=== PATIENT | male | born 1975 | race Caucasian/White ===

== ENCOUNTER → 2022-09-17 14:47 | Outpatient (BNVA) | payer MEDICARE, MEDICAID, SELFPAY | PROVIDERS: PCP Physician Assistant; Visit Provider Physician Assistant | DX: M54.40 Lumbago with sciatica, unspecified side (principal) | CPT/HCPCS: 99212 ==

== ENCOUNTER → 2022-11-08 13:01 | Outpatient (BNV) | payer MEDICAID, SELFPAY | PROVIDERS: Admitting Provider Neurological Surgery; PCP Physician Assistant; Visit Provider Internal Medicine Cardiovascular Disease | DX: R00.0 Tachycardia, unspecified (principal); R94.31 Abnormal electrocardiogram [ECG] [EKG] | CPT/HCPCS: 93010 ==

== ENCOUNTER → 2022-11-22 10:40 | Outpatient (BNV) | payer MEDICAID, SELFPAY | PROVIDERS: Admitting Provider Neurological Surgery; PCP Physician Assistant; Visit Provider Surgery | DX: M54.40 Lumbago with sciatica, unspecified side (principal); Z48.89 Encounter for other specified surgical aftercare | CPT/HCPCS: 20930; 22558; 22612; 22840; 22853; 99024 ==

== ENCOUNTER 2022-11-22 14:12 | Inpatient (IN) | payer MEDICAID, SELFPAY ==
--- NOTE | 2022-11-08 | ECG_ITS ---
Test Reason : PREOP Blood Pressure : / mmHG Vent. Rate : 108 BPM Atrial Rate : 108 BPM P-R Int : 186 ms QRS Dur : 072 ms QT Int : 344 ms P-R-T Axes : 066 015 043 degrees QTc Int : 460 ms Sinus tachycardia Inferior infarct , age undetermined Abnormal ECG No previous ECGs available Referred By: Melanie Peralta Electronically Signed By:JACY LICONA MD
[2022-11-08 11:57] VITALS: BP 131/85; PULSE 121; RESP 16; O2SAT 97; BMI 39.1
--- NOTE | 2022-11-08 12:37 | HO.ANESPROP2 ---
HPI - Anesthesia Eval Consult details Narrative: 47yo M for L5-S1 Ant Lumbar Interbody Fusion No recent illness No CP/SOB with stairs at home/10 minute walk MARY with CPAP nightly. Encouraged compliance. Asthma stable. Albuterol ~ q3mo Recently started ozempic for DM and weightloss. [facility] Active Problems Active Problems: All Active Problems (Updated 11/08/22 @ 12:22 by Tonya Couch, RN) Back pain of lumbar region with sciatica (Acute) Past Medical History Medical History (Updated 11/08/22 @ 12:22 by Tonya Couch, JULIO) Asthma Diabetes Elevated cholesterol HTN (hypertension) MARY on CPAP Seasonal allergies Family History Family history of problems with anesthesia: No Surgical History Surgical History (Updated 11/08/22 @ 12:43 by Tonya Couch RN) History of eyelid surgery History of Problems with Anesthesia: No Social History Social History Are you a primary menagerie caretaker to a significant other at home: No Do you presently have visiting nurse or other home services: No Patient Tobacco Use Status: Never used Tobacco Use of substances other than those prescribed or required for medical reasons: No Have you been hit, kicked, punched, or otherwise hurt by someone within the past year? If so, by whom?: No Are you DNR?: No Advance Directives: No Advance Directives Information Provided: Yes Advance Directives on File: No Recently lost weight without trying: No Nutrition Risks: No Nutritional Risk Poor oral hygiene: No Meds Allergies Allergy/AdvReac Type Severity Reaction Status Date / Time cyclobenzaprine Allergy Severe Hallucinati Verified 11/08/22 12:26 [From Flexeril] ons oxycodone Allergy Severe facial Verified 11/08/22 12:27 itching lactose Allergy Intermediate Gastrointestinal Verified 11/08/22 12:28 Upset Home Medications Medication Instructions Recorded Confirmed Last Taken Type atorvastatin 80 mg tablet 80 mg PO DAILY 11/05/22 11/05/22 Unknown History fluticasone 500 mcg-salmeterol 50 1 ea inhalation BID 11/05/22 11/08/22 Unknown History mcg/dose blistr powdr for inhalation (Advair Diskus) fluticasone propionate 50 2 spray intranasal DAILY 11/05/22 11/05/22 Unknown History mcg/actuation nasal spray,suspension gabapentin 600 mg tablet 1,200 mg PO BID 11/05/22 11/08/22 Unknown History glipizide 2.5 mg tablet, extended 2.5 mg PO DAILY 11/05/22 11/05/22 Unknown History release 24 hr lisinopril 20 1 tab PO DAILY 11/05/22 11/05/22 Unknown History mg-hydrochlorothiazide 12.5 mg tablet metformin 1,000 mg tablet 1,000 mg PO BID 11/05/22 11/05/22 Unknown History albuterol sulfate 90 mcg/actuation 2 puff inhalation Q4-6H PRN 11/08/22 11/08/22 Unknown History aerosol inhaler Shortness Of Breath Or Wheezing fexofenadine 180 mg tablet 180 mg PO BID 11/08/22 11/08/22 Unknown History omega 4-fxp-bjq-fish oil 1,200 mg 2 cap PO BID 11/08/22 11/08/22 Unknown History (144 mg-216 mg) capsule (Fish Oil) semaglutide 0.25 mg or 0.5 mg (2 0.25 mg subcut QWEEK 11/08/22 11/08/22 Unknown History mg/3 mL) subcutaneous pen injector Exam Exam Date and Time: November 08, 2022 1237 Height,Weight and Vital Signs: Height 6 ft 1 in Weight 134.5 kg Last Vital Signs Pulse 121 H 11/08/22 11:57 Resp 16 11/08/22 11:57 BP 131/85 11/08/22 11:57 Pulse Ox 97 11/08/22 11:57 O2 Del Method Room Air 11/08/22 11:57 Pertinent Lab Results Pertinent Lab Results: Lab Results 11/08/22 11/08/22 11/08/22 Range/Units 13:02 13:02 13:02 WBC 8.4 (4.8-10.8) X10*3/uL RBC 4.96 (4.60-5.80) X10*6/uL Hgb 14.5 (14.0-18.0) g/dl Hct 45.0 (42.0-52.0) % MCV 90.7 (80.0-98.0) fL MCH 29.2 (27.0-33.0) pg MCHC 32.2 (31.0-36.0) g/dl RDW 14.2 (11.0-16.0) % Plt Count 292 (160-400) X10*3/uL MPV 10.5 (9.4-12.4) fL Absolute Nucleated RBC 0.000 (0.0-0.012) X10*3/uL Nucleated RBC % (auto) 0.0 (0.0-0.2) /100WBC Sodium 137 (135-145) mmol/L Potassium 4.4 (3.3-5.1) mmol/L Chloride 100 (96-108) mmol/L Carbon Dioxide 24 (22-29) mmol/L Anion Gap 17 (12-20) BUN 25 H (9-16) mg/dL Creatinine 1.10 (0.5-1.4) mg/dL Estim Creat Clear Calc 122.0 Estimated GFR > 60 Random Glucose 184 H (60-115) mg/dL Estimat Average Glucose 212 mg/dL Hemoglobin A1c % 9.0 % Calcium 10.3 H (8.4-10.2) mg/dL Narrative Narrative: EKG 10/2022 Vent. Rate : 108 BPM ? ? Atrial Rate : 108 BPM ?? P-R Int : 186 ms? QRS Dur : 072 ms ? ? QT Int : 344 ms ? ? ? P-R-T Axes : 066 015 043 degrees ?? QTc Int : 460 ms ? Sinus tachycardia Inferior infarct , age undetermined Abnormal ECG No previous ECGs available Airway Mallampati Class: III (small mouth) Neck ROM: Full Loose/Missing/Broken Teeth: No (capped molar x 1) Heart: tachy, rr Lungs: ctab Assessment and Plan Assessment Anesthesia Assessment: Anesthesia Plan Discussed and PAT Visit Final Anesthetic Review Family History of Problems with Anesthesia: No History of Problems with Anesthesia: No
[2022-11-08 13:31] LABS: Hemoglobin 14.5 g/dl (14.0-18.0); Mean Corpuscular HGB Conc 32.2 g/dl (31.0-36.0); Mean Corpuscular Hemoglobin 29.2 pg (27.0-33.0); Mean Corpuscular Volume 90.7 fL (80.0-98.0); Mean Platelet Volume 10.5 fL (9.4-12.4); Platelet Count 292 X10*3/uL (160-400); Red Blood Count 4.96 X10*6/uL (4.60-5.80); Red Cell Distribution Width 14.2 % (11.0-16.0); White Blood Count 8.4 X10*3/uL (4.8-10.8)
[2022-11-08 13:39] LABS: Anion Gap 17 (12-20); Blood Urea Nitrogen 25 mg/dL (9-16); Calcium 10.3 mg/dL (8.4-10.2); Carbon Dioxide 24 mmol/L (22-29); Chloride 100 mmol/L (96-108); Estimated Glomerular Filt Rate > 60; Glucose Random 184 mg/dL (60-115); Potassium 4.4 mmol/L (3.3-5.1); Sodium 137 mmol/L (135-145)
[2022-11-08 13:47] LABS: Estimated Average Glucose 212 mg/dL
[2022-11-22] VITALS (12 sets, daily range): BP systolic 109–141; BP diastolic 68–97; PULSE 92–104; RESP 16–21; TEMP 35.6–37.3; O2SAT 93–99
--- NOTE | ~2022-11-22 | FL_ITS ---
EXAMINATION: XR FLUOROSCOPY WITH IMAGES CLINICAL INFORMATION: L5-S1 anterior lumbar interbody fusion. COMPARISON: None available. TECHNIQUE: Fluoroscopy Supervised By: Dr. Andry Bradford. Fluoroscopy Time: 1.3 minutes. Cumulative Dose: 118.2 mGy. DAP: 2.382 Gycm2. Images: 8. FINDINGS: Fluoroscopic guidance provided for anterior interbody fusion with prosthetic disc replacement at L5-S1 and posterior fusion hardware with rods and bilateral pedicle screws. FL/FL guidance in OR IMPRESSION: Fluoroscopy guidance for surgery at L5-S1.
--- NOTE | 2022-11-22 07:14 | P.HPSUR_ITS ---
Pre-Procedural Eval Section A Date of Service: 11/22/22 The patient is an INPATIENT: No The History & Physical has been completed within 30 days and I have reviewed it.: No Section B Chief Complaint: Lumbago with sciatica, unspecified side Details of Present Illness: back pain , lumbar radiculopathy Relevant Family History (Specify if Yes): No Relevant Social History: None Present Medications: see Short Stay Collaborative assessment Medical History: Significant History (HTN, depression, sleep apnea) History of Previous Operations: No relevant previous surgery Allergies: Allergies Allergy/AdvReac Type Severity Reaction Status Date / Time cyclobenzaprine Allergy Severe Hallucinati Verified 11/18/22 14:43 [From Flexeril] ons oxycodone Allergy Severe facial Verified 11/18/22 14:43 itching lactose Allergy Intermediate Gastrointestinal Verified 11/18/22 14:43 Upset Review of Systems Sugical H&P ROS: Negative: Constitution, Cardiovascular, Respiratory, Neurolog ical, Psychiatric, Hem-Onc, Allergic/Immunologic, Gastrointestinal, Genitourinary, Musculoskeletal, Integumentary, Endocrine and Eyes/Ears/Nose/Throat Exam Surgical H&P Exam: Not Evaluated: HEENT, Not Evaluated: Heart, Not Evaluated: Lungs, Not Evaluated: Extremities, Not Evaluated: Abdomen, Not Evaluated: Skin and Not Evaluated: Neurological Plan Diagnosis/Plan: Unchanged (Oblique lumbar interbody fusion L5-S1) I have reviewed the history and physical and performed a pertinent physical examination on my patient. No changes have occurred unless specified. Time Spent With Patient Time: Total time managing care of this patient today __10__ minutes.
[2022-11-22] MEDS: methocarbamoL 750 MG TABLET PO (09:54)
[2022-11-22] MEDS: Gabapentin 300 MG CAPSULE PO (09:55)
[2022-11-22] MEDS: Lactated Ringers 1,000 ML 100 ML IVCONT (10:00)
--- NOTE | 2022-11-22 10:04 | HO.ANESPROP2 ---
[facility], [facility] Active Problems Active Problems: All Active Problems (Updated 11/18/22 @ 14:43 by Shabnam Hansen) Back pain of lumbar region with sciatica (Acute) Past Medical History Medical History (Updated 11/18/22 @ 14:43 by Shabnam Hansen) Asthma Diabetes Elevated cholesterol HTN (hypertension) MARY on CPAP Seasonal allergies Family History Family history of problems with anesthesia: No Surgical History Surgical History (Updated 11/18/22 @ 14:43 by Shabnam Hansen) History of eyelid surgery History of Problems with Anesthesia: No Meds Allergies Allergy/AdvReac Type Severity Reaction Status Date / Time cyclobenzaprine Allergy Severe Hallucinati Verified 11/22/22 09:31 [From Flexeril] ons oxycodone Allergy Severe facial Verified 11/22/22 09:31 itching lactose Allergy Intermediate Gastrointestinal Verified 11/22/22 09:31 Upset Active Medications: Current Medications Albuterol Sulfate (Albuterol Sulfate (0.083%) 2.5 Mg/3 Ml Vial.Neb) 2.5 mg INHALE ONCE PRN PRN Reason: Shortness of Breath/Wheezing Lactated Ringer's (Lr) 1,000 mls @ 100 mls/hr IVCONT .Q10H DANIELLE Last Admin: 11/22/22 10:00 Dose: 100 mls/hr Home Medications Medication Instructions Recorded Confirmed Last Taken Type atorvastatin 80 mg tablet 80 mg PO DAILY 11/05/22 11/05/22 11/21/22 History fluticasone 500 mcg-salmeterol 50 1 ea inhalation BID 11/05/22 11/08/22 11/21/22 History mcg/dose blistr powdr for inhalation (Advair Diskus) fluticasone propionate 50 2 spray intranasal DAILY 11/05/22 11/05/22 11/21/22 History mcg/actuation nasal spray,suspension gabapentin 600 mg tablet 1,200 mg PO BID 11/05/22 11/08/22 11/21/22 History glipizide 2.5 mg tablet, extended 2.5 mg PO DAILY 11/05/22 11/05/22 11/21/22 History release 24 hr lisinopril 20 1 tab PO DAILY 11/05/22 11/05/22 11/21/22 History mg-hydrochlorothiazide 12.5 mg tablet metformin 1,000 mg tablet 1,000 mg PO BID 11/05/22 11/05/22 11/21/22 History albuterol sulfate 90 mcg/actuation 2 puff inhalation Q4-6H PRN 11/08/22 11/08/22 Unknown History aerosol inhaler Shortness Of Breath Or Wheezing fexofenadine 180 mg tablet 180 mg PO BID 11/08/22 11/08/22 Unknown History omega 1-uiq-vks-fish oil 1,200 mg 2 cap PO BID 11/08/22 11/08/22 Unknown History (144 mg-216 mg) capsule (Fish Oil) semaglutide 0.25 mg or 0.5 mg (2 0.25 mg subcut QWEEK 11/08/22 11/08/22 Unknown History mg/3 mL) subcutaneous pen injector Exam Exam Date and Time: November 22, 2022 1004 Height,Weight and Vital Signs: Height 6 ft 1 in Weight 134.5 kg Last Vital Signs Temp 98.5 F 11/22/22 09:36 Pulse 104 H 11/22/22 09:36 Resp 16 11/22/22 09:36 BP 125/85 11/22/22 09:36 Pulse Ox 96 11/22/22 09:36 O2 Del Method Room Air 11/22/22 09:36 Pertinent Lab Results Pertinent Lab Results: Laboratory Tests 11/08/22 11/08/22 11/08/22 13:02 13:02 13:02 WBC 8.4 RBC 4.96 Hgb 14.5 Hct 45.0 MCV 90.7 MCH 29.2 MCHC 32.2 RDW 14.2 Plt Count 292 MPV 10.5 Absolute Nucleated RBC 0.000 Nucleated RBC % (auto) 0.0 Sodium 137 Potassium 4.4 Chloride 100 Carbon Dioxide 24 Anion Gap 17 BUN 25 H Creatinine 1.10 Estim Creat Clear Calc 122.0 Estimated GFR > 60 Random Glucose 184 H Estimat Average Glucose 212 Hemoglobin A1c % 9.0 Calcium 10.3 H Airway Mallampati Class: III TM Dist: >3cm Neck ROM: Full Assessment and Plan Assessment Anesthesia Assessment: Anesthesia Plan Discussed and Chart Reviewed Final Anesthetic Review Family History of Problems with Anesthesia: No History of Problems with Anesthesia: No NPO: Yes ASA Class: III Final Preanesthetic Review: No Changes in Pt Med Stat, Meds/Allgs Chart Reviewed, Consent Obtained/Reviewed and Anes Risks/Benef Reviewed Patient Risk: Intermediate Procedure Risk: Intermediate Anesthetic Plan Anesthetic Plan: GA Disposition: Standard PACU
[2022-11-22 10:16] LABS: Glucose, Whole Blood 225 mg/dL (60-115)
[2022-11-22] MEDS: ceFAZolin Sodium/Dextrose,Iso 2 GM/50 ML PIGGYBACK IV (11:05)
--- NOTE | 2022-11-22 12:59 | P.OP_ITS ---
Operative Note Operative Note Date of Service: 11/22/22 Narrative: The patient was brought to the operating room, positioned on the table supine and general anesthesia was administered. Patient was then turned to the right decubitus position with left side up. C-arm image was obtained in AP and lateral planes and anterior border of the spine and disk space projections were marked on the skin.The abdomen was clipped and then prepped and draped in the usual sterile fashion. After timeout was done, incision was made from 2 cm medial and inferior to the Anterior Superior iliac spine in oblique direction 5 cm long. It was brought through subcutaneous tissue and the external oblique aponeurosis in line with the skin incision and transverse and internal abdominal muscles were split along the fibers. The pre-peritoneal plane was entered, peritoneum was bluntly dissected off and iliac artery pulse was felt. Self- retaining retractor with two deep blades was inserted and peritoneum protected with moist gauzes. Left internal iliac vein was identified and dissection was carried along the medial surface of the iliac vein up to the bifurcation. The middle sacral vessels were transected and L5-S1 disc space was bluntly and sharply dissected using bipolar cautery staying directly on the surface of the spine. The midline of the disk space was marked with C-arm image guide. Dr. Bradford then proceeded with the corpectomy and fusion, which will be dictated separately by him. After this was done, hemostasis was checked and was excellent. Left ureter was examined prior to closure and was intact. There was good left external iliac artery pulse. Diluted 0.5% Marcaine and Lidocaine was injected in the fascia and subcutaneous tissue. The incision was irrigated and closed by layers using a 2-0 Vicryl for transverse fascia, 0 PDS for the external oblique, 3-0 Vicryl for subcutaneous tissue and 4-0 Monocryl for skin. Exo-fin glue was then applied.
--- NOTE | 2022-11-22 14:18 | W.PM.OPN ---
Operative Note Operative Note Date of Service: 11/22/22 Narrative: Preoperative Diagnosis: 1.) Lumbar degenerative disc disease with back pain Procedure: L5-S1 discectomy, arthrodesis and implantation cage through an anterolateral, retroperitoneal approach; posterolateral instrumented fusion L5-S1 with pedicle screw fixation; allograft Indication for Surgery Lumbar degenerative disc disease Consent Informed Consent was obtained for this operation. I have explained the nature, purpose and benefits of the operation. I have discussed the risks and benefit of the operation including possible complications or adverse events with patient/family. Alternative(s) were discussed with the patient with their relative benefits and risks as well as the consequences of not accepting the operation were included in obtaining consent. Surgeon: GLENIS HOLLOWAY MD, PHD Procedure Assisted By: SANDRO ROGERS MD Description of Procedure this 47-year-old male is suffering from intractable low back pain with the MRI showing lumbar degenerative disc disease L5-S1. The patient was offered a minimally invasive lumbar fusion through an anterolateral, retroperitoneal approach followed by a posterior instrumented fusion L5-S1. The procedure complications were explained. The patient was consented. The patient was brought to the operating room and endotracheally intubated. The patient was turned in the lateral position with the left side up. Prep and drape was done followed by timeout. Dr. Rogers, co-surgeon, provided the access to the L5-S1 disc space through an anterolateral, retroperitoneal approach. He will dictate the approach in a separate operative note. When the L5-S1 disc space was exposed I took over the procedure. An annulotomy was done followed by a partial discectomy. Sequential trial implants were inserted and advanced towards the posterior wall of the disc space. I completed the discectomy and prepare the endplates. Then a [id number] mm and 12 degree lordosis 4 web cage filled with allograft was inserted into the disc space. The retractor was removed and hemostasis was done by Dr. Vincent who closed the incision. This marked first part of the procedure. Accordingly the patient was turned prone on the True spine table and 2 C arms were installed for fluoroscopy. Prep and drape was done followed by a second timeout. 2 paramedian incisions were made lateral from the L5-S1 pedicles. The muscle fascia was opened and the musculature was split bluntly to expose the posterolateral gutter. The following steps were taken for pedicle screw placement: The pediguard tap was used to create a transpedicular trajectory into the vertebral body. A K wire was advanced. A specially designed instrument was advanced over the K wire to decorticate the posterolateral gutter. Pedicle screw was advanced after which the K wire was removed. Following the steps pedicle screws were placed in the bilateral L5 and S1 pedicles. Total of 4 screws were placed with the following measurements: 6.5x 45 mm. A 40 mm gianfranco was tunneled on the right and a 45 mm gianfranco on the left and locked down with locking caps. The extension towers were removed. The posterolateral fusion was completed by laying down allograft in the posterolateral gutter. Hemostasis was done. The paramedian incisions were closed with an 0 Vicryl to fascia and 3-0 Vicryl to subdermal layer. Steri-Strips were used to approximate the incision. An OpSite with Tegaderm was used to cover the incisions. All sponge and needle counts were correct. Patient was extubated and transported in stable condition to recovery room. Anesthesia: General Estimated Blood Loss (ml): 150 Duration of Surgery: 2 hr 15 Complications: None Postoperative Plan: Admit to inpatient
--- OUTSIDE RECORDS SUMMARY | 2022-11-22 14:25 | XMS_ITS | Continuity of Care Document ---
Author Name Unknown Organization [facility] Address [address] [place] [id number]- Care Team Providers Care Brake Mechanic Name Role Phone Kin FAULKNER, Yoana Nance Primary Care Physician [place] [facility] [id number] Date(s): 06/24/20 - 07/24/20 [facility] [address] [address] Attending Physician: Isaac Smith Admitting Physician: AdmIsaac alexandre Referring Physician: AdmtrIsaac Allergies, Adverse Reactions, Alerts Substance Reaction Severity Status cyclobenzaprine Active Immunizations Given and Recorded Vaccine Date Status Refusal Reason influenza virus vaccine, inactivated 01/01/09 Give n influenza virus vaccine, inactivated 02/12/08 Give n Tet/Diphth/Acel, Pertussis (oldterm) 02/12/08 Give n tetanus-diphtheria toxoids (Td) 01/19/07 Given Medications Advair Diskus 500 mcg-50 mcg inhalation powder 1 puffs, Inhalation, 2 times a day, # 60 each, 0 Refills, Maintenance Start Date: 10/15/09 Stop Date: 01/13/10 Status: Ordered Azithromycin 5 Day Dose Pack 250 mg oral tablet See Instructions, as directed on package labeling, # 1 each, 0 Refills Start Date: 04/24/09 Stop Date: 05/01/09 Status: Ordered fexofenadine 180 mg oral tablet 1 tablet = 180 mg, By Mouth, Daily, # 90 tablet, 0 Refills, Maintenance Start Date: 10/15/09 Stop Date: 01/13/10 Status: Ordered lorazepam 0.5 mg oral tablet 1 tablet = 0.5 mg, By Mouth, 3 times a day, PRN Anxiety, # 90 tablet, 1 Refills Start Date: 03/05/09 Stop Date: 03/12/09 Status: Ordered Percocet-5/325 325 mg-5 mg oral tablet 1 tablet, By Mouth, Every 6 hours, PRN Pain, # 120 tablet, 0 Refills, Maintenance, Tablet Start Date: 09/29/09 Status: Ordered ProAir HFA 90 mcg/inh inhalation aerosol with adapter 2 puffs, Inhalation, 4 times a day, # 3 each, 0 Refills, Maintenance Start Date: 10/15/09 Stop Date: 01/13/10 Status: Ordered Soma 350 mg oral tablet 1 tablet = 350 mg, By Mouth, 3 times a day, # 42 tablet, 0 Refills, Tablet Start Date: 04/24/09 Stop Date: 05/08/09 Status: Ordered Zocor 20 mg oral tablet 1 tablet, By Mouth, Daily at bedtime, # 90 tablet, 3 Refills, Maintenance Start Date: 02/06/10 Stop Date: 02/01/11 Status: Ordered Zoloft 100 mg oral tablet 1, tablet, By Mouth, Daily, # 90 tablet, 1 Refills Start Date: 10/22/08 Stop Date: 04/20/09 Status: Ordered Problem List Condition Effective Dates Status Health Status Inform ant Asthma(Confirmed) Active Back pain(Confirmed) Active Depression(Confirmed) Active
--- OUTSIDE RECORDS SUMMARY | 2022-11-22 14:25 | XMS_ITS | Continuity of Care Document ---
Author Name Unknown Organization [facility] Address [address] [place] [address]- Care Team Providers Care Wage Conciliator Name Role Phone Kin FAULKNER, Yoana Nance Primary Care Physician [place] [facility] [place]13[place] - 03/15/[address] [address] Attending Physician: Not on Staff, Attending MD Allergies, Adverse Reactions, Alerts Substance Reaction Severity [...]
--- OUTSIDE RECORDS SUMMARY | 2022-11-22 14:25 | XMS_ITS | Continuity of Care Document ---
Author Name Unknown Organization [facility] Address [address] [place] [address]- Care Team Providers Care Hot End Operator Name Role Phone Ori Castle Primary Care Physician [phone] Encounter [facility] [place] Date(s): 01/27/22 - 02/26/[address] [address] Attending Physician: Isaac Smith Admitting Physician: Isaac Smith Referring Physician: AdmtrIsaac Allergies, Adverse Reactions, Alerts [...] Date: 04/20/09 Status: Ordered Problem List Condition Confirmation Course Effective Dates Status Health St [facility] Informant Asthma Confirmed Active Back pain Confirmed Active Depression Confirmed Active Patient Care team information Care Team Personnel Name: Ori Castle Position: [facility] Outreach Member Role: PCP Address: Address: [address] [place] [address] Care Team Related Persons Name: NONE, NONE
--- OUTSIDE RECORDS SUMMARY | 2022-11-22 14:25 | XMS_ITS | Continuity of Care Document ---
Author Name Unknown Organization [facility] Address [address] [place] [id number]- Care Team Providers Care Senior Media Director Name Role Phone Ori Castle Primary Care Physician [place] [facility] [place] 02/03/[address] [address]- Attending Physician: Selene Espino MD Admitting Physician: Selene Espino MD Referring Physician: Ori Castle Allergies, Adverse Reactions, Alerts Substance Reaction Severity [...] Condition Confirmation Course Effective Dates Status Health at Informant Asthma Confirmed Active Back pain Confirmed Active Depression Confirmed Active Patient Care team information Personnel Name: Ori Castle Address: Address: [address] [place] [id number]
--- OUTSIDE RECORDS SUMMARY | 2022-11-22 14:25 | XMS_ITS | Continuity of Care Document ---
Author Name Unknown Organization [facility] Address [address] [place] [address]- Care Team Providers Care Pipelines Superintendent Name Role Phone Kin FAULKNER, Yoana Nance Primary Care Physician [phone] [place] [facility] [place] 03/15/[address] [address] Attending Physician: Isaac Smith Admitting Physician: [...]
--- OUTSIDE RECORDS SUMMARY | 2022-11-22 14:25 | XMS_ITS | Continuity of Care Document ---
Author Name Unknown Organization [facility] Address [address] [place] [address]- Care Team Providers Care Trimmer Operator Name Role Phone Kin FAULKNER, Yoana Nance [facility] Physician [id number] Date[facility] - 07/24/[address] [address] Attending Physician: Jarrett Price MD Admitting Physician: Jarrett Price MD Referring Physician: Jarrett Price MD Allergies, Adverse Reactions, Alerts Substance Reaction [...]
[2022-11-22] MEDS: fentaNYL citrate/PF 100 MCG/2 ML VIAL 50 MCG IVPUSH ×2 (14:40→15:00)
[2022-11-22] MEDS: HYDROmorphone HCl 0.5 MG/0.5 ML SYRINGE IVPUSH ×2 (15:07→15:17)
--- NOTE | 2022-11-22 15:41 | PHA.MEDREC ---
Pharmacy Consult ? Medication Reconciliation Pharmacy has completed the medication reconciliation. reviewed med rec done by nursing.
[2022-11-22] MEDS: Ketorolac Tromethamine 15 MG/ML VIAL IVPUSH ×2 (15:59→21:23)
[2022-11-22] MEDS: ondansetron HCL 4 MG/2 ML VIAL IVPUSH (15:59)
[2022-11-22 17:04] LABS: Glucose, Whole Blood 262 mg/dL (60-115)
[2022-11-22] MEDS: Acetaminophen 1,000 MG/100 ML PIGGYBACK 400 MG IV (17:59)
[2022-11-22 19:02] LABS: Creatinine Clr Calc Pharmacy 123.1; Estimated Glomerular Filt Rate > 60
[2022-11-22] MEDS: ceFAZolin Sodium 3 GM in 0.9 % Sodium Chloride 100 ML IV (19:22)
[2022-11-22] MEDS: Gabapentin 600 MG TABLET 1200 MG PO (21:23)
[2022-11-22] MEDS: metFORMIN HCl 1,000 MG TABLET 1000 MG PO (21:23)
[2022-11-22] MEDS: Docusate Sodium 100 MG CAPSULE PO (21:23)
[2022-11-23] MEDS: Acetaminophen 1,000 MG/100 ML PIGGYBACK 400 MG IV (01:26)
[2022-11-23] MEDS: ceFAZolin Sodium 3 GM in 0.9 % Sodium Chloride 100 ML IV ×2 (01:26→06:31)
[2022-11-23] MEDS: Ketorolac Tromethamine 15 MG/ML VIAL IVPUSH ×2 (01:27→08:59)
[2022-11-23 03:21] VITALS: BP 129/75; PULSE 103; RESP 17; TEMP 36.2; O2SAT 96
[2022-11-23 07:47] VITALS: BP 127/71; PULSE 109; RESP 18; TEMP 36.8; O2SAT 95
--- NOTE | 2022-11-23 07:53 | HO.NEURO.PN ---
Neurosurgery Operative Note Date of Service: 11/23/22 Narrative: POD: 1 Procedure: L5-S1 ALIF with posterolateral fusion L5-S1 with pedicle screw fixation Patient reports he is up walking around is otherwise doing well. He feels his symptoms are much better than pre-operatively. He states that initially his left leg had some numbness postoperatively, which has since resolved. He still reports mild pain in his low back, with good relief with pain medication. He reports he is voiding well, tolerating diet, and is awaiting a PT evaluation. Afebrile, vital signs stable. Patient reports that his left lower extremity is weaker than his right lower extremity, but they both seem equal in strength (5/5) when tested. Back dressings C/D/I and have some staining without signs of hematoma. Left lateral incision C/D/I without serosanguineous drainage, steri-strips remain in place. Plan: Patient meets criteria to be medically discharged home, discussed with Dr. Bradford who is aware that he is doing well and meets criteria for DC.
--- NOTE | 2022-11-23 07:54 | PM.DS ---
DS: Providers Provider Date of Service: 11/23/22 Date of admission: 11/22/22 14:12 Primary care physician: UZMA Gaines DS: Diagnosis Discharge Diagnosis (1) Back pain of lumbar region with sciatica: Status: Acute DS: Summary Time Spent with Patient Time attestation: Total time managing care of this patient today ____ minutes. Discharge coordination time: Less than 30 minutes Quality: Safe Use of Opioids Does Pt have an Active Cancer Diagnosis on the Problem List?: No Quality: Stroke Does the patient have a stroke diagnosis?: No Physical Exam Vital Signs: Vital Signs: Last Vital Signs Temp 98.2 F 11/23/22 07:47 Pulse 109 H 11/23/22 07:47 Resp 18 11/23/22 07:47 BP 127/71 11/23/22 07:47 Pulse Ox 95 11/23/22 07:47 O2 Del Method Room Air 11/23/22 07:47 O2 Flow Rate 2 11/22/22 19:29 BMI result Body Mass Index 39.1 DS: Data Data Completed and Pending Labs on day of discharge: Laboratory Results - last 24 hr 11/22/22 11/22/22 11/22/22 09:43 16:40 18:18 Creatinine 1.09 Estim Creat Clear Calc 123.1 Estimated GFR > 60 POC Glucose 225 H 262 H Discharge Plan Discharge Anticipated Discharge Date/Time: 11/23/22 07:55 Patient Disposition: Home, Self-Care Discharge Diagnosis: S/P L5-S1 ALIF with posterolateral fusion L5-S1 with pedicle screw fixation Referrals: Ori Dolan PA [Primary Care Provider] - 1 Week Discharge Medications: New hydromorphone 2 mg tablet 2 mg PO Q4H PRN (Reason: pain) Qty: 30 0RF Rx Instructions: S/P Lumbar spine surgery. Partial Fill upon patient request. docusate sodium [Colace] 100 mg capsule 100 mg PO BID Qty: 20 0RF Continued atorvastatin 80 mg tablet 80 mg PO DAILY gabapentin 600 mg tablet 1,200 mg PO BID lisinopril-hydrochlorothiazide 20-12.5 mg tablet 1 tab PO DAILY glipizide 2.5 mg tablet extended release 24hr 2.5 mg PO DAILY metformin 1,000 mg tablet 1,000 mg PO BID fluticasone propion-salmeterol [Advair Diskus] 500-50 mcg/dose blister with device 1 ea inhalation BID fluticasone propionate 50 mcg/actuation spray,suspension 2 spray intranasal DAILY semaglutide 0.25 mg or 0.5 mg (2 mg/3 mL) Pen Injector 0.25 mg SUBCUT QWEEK Rx Instructions: for 4 weeks albuterol sulfate 90 mcg/actuation Hfa Aerosol Inhaler 2 puff INHALATION Q4-6H PRN (Reason: Shortness Of Breath Or Wheezing) fexofenadine 180 mg Tablet 180 mg PO BID No Action omega 5-jux-mzh-fish oil [Fish Oil] 1,200 (144-216) mg Capsule 2 cap PO BID Discharge Orders: Discharge Order (Routine); Ordered 11/23/22 Ordered By: Markie Cooper Diet: Diabetic diet Activity on Discharge: As tolerated Stand Alone Forms: Patient Portal Discharge page Activity Restrictions/Additional Instructions: After your spinal surgery we ask you to observe the following restrictions/guidelines: Activity: It is normal to feel some discomfort as you increase your activity, but that will improve with time. We ask you avoid heavy lifting or acitivities that cause pain. As a general rule, 8lbs is a safe limit for lifting right after surgery. Walk as much as you feel comfortable but not to exhaustion. You will feel extra tired the first few days after surgery. Stay well hydrated. It is OK to walk up and down stairs You may return to driving when you are off narcotics (such as vicodin, oxycodone, dilaudid, etc), and you are back to normal functional capacity. If you have any concerns please check with office before driving. Return to work is specific to each patient and each surgery, so please speak with your doctor/PA at first follow up. Please bring paperwork such as FMLA at that time if you need it filled out. Medications: We will give you a short supply of narcotics after surgery (usually one weeks worth). If you need more please call the office but do not use more than prescribed. You will need to give our office 48 hours notice if you need narcotics refilled and we do not fill narcotics on weekends or evenings. If you are on a narcotic, it is a good idea to take a stool softener such as colace or senna to avoid constipation If you take blood thinner such as aspirin, Plavix, Coumadin, Effient, Eliquis etc for conditions such as Afib, DVT, Pulmonary embolus, coronary disease, stents etc please speak with your surgeon about specific details as to when you can resume these medications. You can resume NSAIDs on post op day 1 (eg: Motrin, Naproxen, etc). Follow up: Please call the office, , after surgery to arrange a 3 week follow up for wound check. Wound Care: You may remove your dressing on the first day after surgery. You may leave open to air. Please do not remove the steri strips underneath. they will fall off on their own in one week. IT IS NORMAL FOR THE WOUND TO OOZE OR BE BLOODY FOR A FEW DAYS AFTER SURGERY. IF THIS HAPPENS JUST PLACE NEW DRESSING OVER IT TO AVOID STAINING CLOTHES. You may shower on post op day # 1 We ask that you do not let the water soak the wound. If it does get wet, just towel dry lightly. Please do not scrub your incision or place any type of chemical/ointment on the wound. No tub baths, pools or jacuzzis for one month. If you have any leaking or redness from your wound, or fevers, please call office Care Plan Goals: Reurn to activity as tolerated. Health Concerns: None. Plan of Treatment: F/U in office in 2 weeks. Assessment: Stable. Needs to be seen by PT and then may discharge home.
--- NOTE | 2022-11-23 08:03 | W.MHC.F2F ---
Service Date Service Date: 11/23/22 Encounter Date of encounter: 11/23/22 Reasons for Services Signs and symptoms assessed: Low back pain, s/p lumbar spinal surgery. Symptomology as below. Reason for physical therapy: home safety and mobility, therapeutic exercises, restore joint function, gait/transfer training and ADL training Homebound: Leaving the home is medically contraindicated at this time without the asist of a device and/or another person due th the listed conditions above and below. Reason homebound: unsteady gait / fall risk, leg weakness, pain with transfers, weakness related to hospital stay and unable to drive Certification: Based on the above findings, I certify that this patient is confined to the home and needs intermittent physical therapy. The patient is under my care, and I have initiated the establishment of the plan of care. The patient will be followed by a physician who will periodically review the plan of care. Time Spent With Patient Time: Total time managing care of this patient today __10__ minutes.
[2022-11-23] MEDS: Fluticasone/Vilanterol 200/25 BLST.W.DEV 1 PUFF INHALE (08:05)
[2022-11-23 08:07] VITALS: PULSE 103; RESP 16; O2SAT 96
--- NOTE | 2022-11-23 08:46 | MHC.CM.PN ---
IMM DELIVERED LIVES ALONE WITH CAT. INDEPENDENT AT BASELINE. USES CANE NEEDED AND HAS A C-PAP FOR SLEEP. NO HCP, DECLINES AT THIS TIME +COVID VAX X3 PCP LAYNE GUSMAN. DP: PT HAS BEEN MEDICALLY CLEARED FOR DC HOME WITH [facility] FOR P.T. SERVICES (FIRST CHOICE) REFERRAL SENT. PT HAS OWN RIDE HOME.
[2022-11-23] MEDS: Atorvastatin Calcium 80 MG TABLET PO (09:01)
[2022-11-23] MEDS: Docusate Sodium 100 MG CAPSULE PO (09:01)
[2022-11-23] MEDS: lisinopriL 20 MG TABLET PO (09:02)
[2022-11-23] MEDS: glipiZIDE XL 2.5 MG TAB.ER.24 PO (09:02)
[2022-11-23] MEDS: Gabapentin 600 MG TABLET 1200 MG PO (09:02)
[2022-11-23] MEDS: Loratadine 10 MG TABLET PO (09:03)
[2022-11-23] MEDS: metFORMIN HCl 1,000 MG TABLET 1000 MG PO (09:12)
[2022-11-23] MEDS: hydroCHLOROthiazide 12.5 MG TABLET PO (09:13)
--- NOTE | 2022-11-23 09:14 | HO.POSTANES ---
Post Anesthesia Evaluation Post Anesthesia Evaluation Date of Service: 11/23/22 Vital Signs: Vital Signs Temp Pulse Resp BP Pulse Ox O2 Del Method 11/23/22 08:07 103 H 16 11/23/22 07:47 98.2 F 109 H 18 127/71 95 Room Air 11/23/22 03:21 97.2 F 103 H 17 129/75 96 Room Air Anesthesia: General Endotracheal-GETA Mental Status: Awake Pain Control: Satisfactory Nausea/Vomiting: None Hydration: Adequate Anesthesia-Related Issues: No Anes. Related Issues
[2022-11-23 10:09] VITALS: O2SAT 99
== END 2022-11-23 11:01 | disposition home health service (06) | DRG 304 ==
LOC: HO.SSSA 14:24 → HO.S3 15:01
PROVIDERS: Nurse Practitioner; Admitting Provider Neurological Surgery; PCP Physician Assistant; Visit Provider Neurological Surgery
PROC: 0SG30A0 Fusion of Lumbosacral Joint with Interbody Fusion Device, Anterior Approach, Anterior Column, Open Approach (ICD-10-PCS; principal; 2022-11-22 10:40)
DX: M51.36 Other intervertebral disc degeneration, lumbar region (principal)
CPT/HCPCS: 36415; 80048; 82565; 82947; 83036; 85027; 93005; 94640; 97161; C1713; J0131; J0690; J1170; J1885; J2250; J2371; J2405; J3010; L8699

== ENCOUNTER 2022-12-17 11:28 | Outpatient (AMB) | payer MEDICAID, SELFPAY ==
--- NOTE | 2022-12-17 11:29 | A.SPINEOV_ITS ---
Intake Intake Visit Reasons: 1st post-op Intake Note: Mr. Avendano is here today for his 1st post-op. Partition Assembler Required: No Allergies cyclobenzaprine [From Flexeril] Allergy (Severe, Verified 11/22/22 09:31) Hallucinations oxycodone Allergy (Severe, Verified 11/22/22 09:31) facial itching lactose Allergy (Intermediate, Verified 11/22/22 09:31) Gastrointestinal Upset Assessment & Plan Assessment & Plan (1) Back pain of lumbar region with sciatica: Code(s): M54.40 - Lumbago with sciatica, unspecified side Plan The patient is a 47-year-old male comes in for his 1st postoperative appointment s/p L5-S1 ALIF with posterolateral fusion L5-S1 with pedicle screw fixation completed on 11/22/2022. Postoperatively the patient still complained of some pain with radiation down his left leg, accompanied by some numbness/tingling. Today in the office he reports that he is ambulating well, with the assistance of a cane. He is still having some dull aching in his left lateral thigh reports no radiation of symptoms down his leg to his foot. He states that he feels much better than he did preoperatively, and is very satisfied with the surgery. He has several questions about postoperative care including bending/twisting to perform minor ADLs such as opening his oven to cook meals. He was informed that doing minor things such as this in order to complete his ADLs is completely fine, and he was encouraged to continue walking and remaining active. On exam the patient appears well, in NAD. His left lateral incision is clean dry and intact. His posterior back incisions are clean dry and intact. There are no signs of erythema, edema, or infection. No purulence from any of the inci arturo sites. Sensation remains grossly intact aside from some nonspecific sensation reduction in his left lateral thigh. The patient is overall doing well, and may be seen back in 6 weeks for follow-up appointment. He is informed that we will need to get lumbar spine x-rays at that time, and may discuss continued physical therapy if the patient feels that he needs it. Total amount of time spent in this visit was 20 minutes in discussion of symptoms, surgical procedure XR imaging review, and subsequent plan of care. Markie Bradford MD,PhD [facility] Coding Level of Care Code Est Pt Level 3 (64928) Diagnoses Back pain of lumbar region with sciatica M54.40
== END 2022-12-17 11:44 | disposition home or self-care (01) ==
PROVIDERS: PCP Physician Assistant; Visit Provider Physician Assistant
DX: M54.40 Lumbago with sciatica, unspecified side (principal)
CPT/HCPCS: 99213

== ENCOUNTER → 2022-12-17 11:28 | Outpatient (BNVA) | payer MEDICAID, SELFPAY | PROVIDERS: PCP Physician Assistant; Visit Provider Physician Assistant | DX: M54.40 Lumbago with sciatica, unspecified side (principal) | CPT/HCPCS: 99212 ==

== ENCOUNTER 2023-01-27 16:39 | Outpatient (REF) | payer MEDICAID, SELFPAY | END 2023-01-27 16:40 | disposition home or self-care (01) | LOC: HO.HOSX 16:39 | PROVIDERS: Visit Provider Physician Assistant | DX: Z13.89 Encounter for screening for other disorder (principal) ==

== ENCOUNTER 2023-01-28 08:33 | Outpatient (AMB) | payer MEDICAID, SELFPAY ==
--- NOTE | 2023-01-28 08:58 | A.OFFVIS_ITS ---
Intake Intake Visit Reasons: 2nd post op Intake Note: pt here for 2nd post op X rays were done Physician Primary Care Sports Medicine Required: No Allergies cyclobenzaprine [From Flexeril] Allergy (Severe, Verified 11/22/22 09:31) Hallucinations oxycodone Allergy (Severe, Verified 11/22/22 09:31) facial itching lactose Allergy (Intermediate, Verified 11/22/22 09:31) Gastrointestinal Upset PFSH Medical History (Updated 01/28/23 @ 09:24 by UZMA Gil) Asthma Seasonal allergies Elevated cholesterol HTN (hypertension) Diabetes MARY on CPAP Surgical History (Updated 01/28/23 @ 09:24 by UZMA Gil) History of eyelid surgery Social History (System 11/18/22 @ 14:43 by Shabnam Hansen) Household Members: Family Are you a primary memory care director to a significant other at home: No Do you presently have visiting nurse or other home services: No Patient Tobacco Use Status: Never used Tobacco Second Hand Smoke Exposure: No service: No Assessment & Plan Assessment & Plan (1) S/P lumbar fusion: Code(s): Z98.1 - Arthrodesis status Orders: Orders XR lumbar spine 4V min Today M54.40 - Lumbago with sciatica, unspecified side PT Evaluation and Treatment Today M54.40 - Lumbago with sciatica, unspecified side Coding Level of Care Code Global (01779) Diagnoses S/P lumbar fusion Z98.1
== END 2023-01-28 09:25 | disposition home or self-care (01) ==
PROVIDERS: PCP Physician Assistant; Visit Provider Physician Assistant
DX: Z98.1 Arthrodesis status (principal)
CPT/HCPCS: 99024

== ENCOUNTER → 2023-01-28 08:33 | Outpatient (BNVA) | payer MEDICAID, SELFPAY | PROVIDERS: PCP Physician Assistant; Visit Provider Physician Assistant | DX: M54.40 Lumbago with sciatica, unspecified side (principal) ==

== ENCOUNTER 2023-01-28 08:35 | Outpatient (REF) | payer MEDICAID, SELFPAY ==
--- NOTE | ~2023-01-28 | XR_ITS ---
EXAMINATION: XR LUMBOSACRAL SPINE WITH OBLIQUES CLINICAL INFORMATION: Lumbago with sciatica COMPARISON: Fluoroscopic guidance 11/22/2022 at L5-S1 anterior lumbar interbody fusion TECHNIQUE: AP view as well as lateral neutral, flexion and extension views of the lumbar spine. FINDINGS: Posterior fusion hardware with rods and bilateral pedicle screws and interbody disc spacer at L5-S1. Hardware appears intact. Visualization limited due to body habitus. Slight levoscoliosis of the lumbar spine. Degenerative changes in the partially imaged lower thoracic spine. Mild anterior loss of height of what is possibly T12 vertebral body, of indeterminate age. Multilevel degenerative changes in the remainder of the lumbar spine are most notable at L2-L3 with grade 1 retrolisthesis, loss of disc space height and hypertrophic change. XR/XR lumbar spine 4V min IMPRESSION: 1. Posterior fusion hardware with rods and bilateral pedicle screws and interbody disc spacer at L5-S1. Hardware appears intact. 2. Mild anterior loss of height of what is possibly T12 vertebral body, of indeterminate age. 3. Advanced degenerative changes at L2-L3 with grade 1 retrolisthesis.
== END 2023-01-28 08:36 | disposition home or self-care (01) ==
LOC: HO.HOSX 08:35
PROVIDERS: Visit Provider Physician Assistant
DX: M54.40 Lumbago with sciatica, unspecified side (principal); Z47.89 Encounter for other orthopedic aftercare; Z98.1 Arthrodesis status
CPT/HCPCS: 72110

== ENCOUNTER 2023-05-12 09:00 | Outpatient (RCR) | payer MEDICAID, SELFPAY ==
--- NOTE | 2023-02-03 11:38 | MHC.PT.EP ---
[facility] [place] Office [place] Office [place] Office [address] Trista Mcdaniel [address] [phone] F: [phone] F: [phone] F: [phone] F: [phone] Physical Therapy Plan of Care Date of Evaluation: 02/03/23 Date of Surgery: 11/22/22 Diagnosis: lumbago with sciatica, s/p lumbar fusion 11/22/22 Assessment: Patient is a 47 year old R handed male who presents with s/s consistent with low back pain, lumbago with sciatica, s/p lumbar fusion 11/22/22. He does not work and is living a fairly sedentary lifestyle due to chronic pain before surgery. Patient past medical history includes CPAP, HTN, DM, and asthma. Current impairments include pain, posture, ROM, strength, activity tolerance and functional mobility. Functional limitations include decreased ability to stand, walk, lift, bend, carry, negotiate stairs, exercise, and be active. Patient is motivated with good rehab potential. Skilled PT will address impairments and functional limitations in order to achieve goals. 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 Manual therapy to restore motion and function. Therapeutic exercise to improve strength and flexibility. Neuromuscular re-education for posture and balance. Therapeutic activities to return to functional activities of daily living. Electronically signed by: Maciej Patiño PT Please sign and return to therapist. Thank you for your referral.
== END 2023-12-27 10:56 | disposition home or self-care (01) ==
LOC: HO.PTCHIC 09:00
PROVIDERS: PCP Physician Assistant; Visit Provider Physician Assistant
DX: M54.50 Low back pain, unspecified (principal)
CPT/HCPCS: 97110; 97162

== ENCOUNTER 2024-10-03 09:44 | Outpatient (AMB) | payer MEDICAID, SELFPAY ==
--- NOTE | 2024-10-03 09:46 | MHC.OFFVIS ---
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 The patient states that he fell directly onto his left shoulder in July of 2023 when he was helping his parents. He has been going to formal physical therapy which has given him minimal relief. He has had a cortisone injection which gave him no relief but did significantly elevated his blood glucose levels. He has tried Tylenol and anti-inflammatory medicines which gave him minimal relief. Allergies cyclobenzaprine (From Flexeril) Allergy (Severe, Verified 10/03/24 09:50) Hallucinations oxycodone Allergy (Severe, Verified 10/03/24 09:50) facial itching lactose Allergy (Intermediate, Verified 10/03/24 09:50) Gastrointestinal Upset Medication List - Last Reconciled 10/03/24 by Adonis Leal MD albuterol sulfate 90 mcg/actuation 2 puffs inhalation Q4-6H PRN atorvastatin 80 mg PO DAILY diclofenac sodium 1% 4 grams topical BID empagliflozin (Jardiance) 10 mg PO QAM fenofibrate nanocrystallized 145 mg PO DAILY fexofenadine 180 mg PO BID fluticasone propion-salmeterol 500-50 mcg/dose (Advair Diskus) 1 ea inhalation BID fluticasone propionate 50 mcg/actuation 2 sprays intranasal DAILY insulin glargine (Lantus Solostar U-100 Insulin) 10 units subcut BEDTIME lisinopril-hydrochlorothiazide 20-12.5 mg 1 tab PO DAILY metformin 500 mg PO BID omega 3-bst-hxq-fish oil 1,200 (144-216) mg (Fish Oil) 2 caps PO BID PFSH Medical History Asthma Seasonal allergies Elevated cholesterol HTN (hypertension) Diabetes AMRY on CPAP Surgical History History of eyelid surgery Social History Household Members: Family Are you a primary rn progressive care to a significant other at home: No Do you presently have visiting nurse or other home services: No Patient Tobacco Use Status: Never used Tobacco Second Hand Smoke Exposure: No service: No Current occupational status: unemployed Current occupation: rt handed Physical Exam Vital Signs: BMI result Body Mass Index 39.0 Const Other: Well-nourished well-developed very friendly male awake alert and oriented x3 in no acute distress Extrem Other: Bilateral upper extremity examination shows good capillary refill, no skin lesions noted, normal sensation light touch Left shoulder examination shows decreased range of motion when compared to his right shoulder, 4/5 strength with supraspinatus testing, positive impingement signs, tenderness over his acromioclavicular joint, no instability Results Reviewed Results Reviewed: Janis Rosenbaum left shoulder MRI shows a type 2 acromion, severe acromioclavicular joint narrowing, signal change within the supraspinatus tendon to to rotator cuff tendinosis versus a small full-thickness tear Assessment & Plan Assessment & Plan (1) Impingement syndrome of left shoulder: Code(s): M75.42 - Impingement syndrome of left shoulder Category: Medical Plan Mr. Avendano presents with progressively worsening left shoulder pain and weakness due to impingement syndrome, acromioclavicular joint arthritis and possible rotator cuff tearing. I had a lengthy discussion with the patient regarding treatment options. At this point he has failed continued non operative treatments. The risks and benefits of left shoulder surgery were discussed at length with the patient. The patient wishes to proceed with surgery later this year. He will contact my office to pick a surgery date. Surgery will involve left shoulder arthroscopic distal clavicle excision, left shoulder arthroscopic acromioplasty and possible left shoulder rotator cuff repair showed a full-thickness tear be found at the time of his surgery. The patient will continue with his range of motion exercises in the meantime. Feel free to call me at any time should questions regarding his orthopedic management arise. Thank you very much for asking me to see this very friendly gentleman. I spent 21 minutes in reviewing the patient's records and imaging studies, seeing the patient and documenting in the medical record. Orders: Orders XR shoulder LT min 2V Today M25.512 - Pain in left shoulder Medications: Discontinued docusate sodium (Colace) Discontinued Reason: Patient no longer taking 100 mg PO BID 20 caps 0RF constipation prophylaxis hydromorphone Partial Fill upon patient request. Discontinued Reason: Patient no longer taking 2 mg PO Q4-6H PRN 30 tabs 0RF severe pain Coding Level of Care Code New Pt Level 3 (90996) Complex EM visit Add On G2211 Diagnoses Impingement syndrome of left shoulder M75.42
[2024-10-03 09:48] VITALS: BMI 39.0
--- OUTSIDE RECORDS SUMMARY | 2024-10-03 10:47 | XMS_ITS | Encounter Summary ---
Author Organization [facility] Address [address] [place] [address] Care Team Providers Care Strategies Analyst Name Role Phone Pcp, No Primary Care Provider Unavailabl e Pcp, No Unavailable Unavailable Daniela Blanco MD Primary Care Provider [phone] Umesh Jewell MD Unavailable [phone] Encounter Details Date Type Department Care Team ([facility] st Contact Info) Description 12/10/2014 Scanned Document [address] [place] [phone] Provider, Generic Social History Tobacco Use Types Packs/Day Years Used Date Smoking Tobacco: Never Assessed Sex and Gender Information Value Date Recorded Sex Assigned at Not on file Legal Sex Male 5:59 PM EDT Gender Identity Not on file Sexual Orientation Not on file documented as of this encounter Plan of Treatment Not on file documented as of this encounter Visit Diagnoses Not on filedocumented in this encounter Care Teams Strategies Analyst Relationship Specialty Start Date End Date Pcp, No PCP - General 12/30/14 05/12/15 Daniela Blanco MD PCP - General Internal Medicine 05/13/15 09/25/18 Pcp, No 12/30/14 08/21/18 Umesh Jewell MD [address] [id number] Ophthalmology 08/22/18 documented as of this encounter
== END 2024-10-03 10:20 | disposition home or self-care (01) ==
LOC: HO.HOS 09:45
PROVIDERS: PCP Physician Assistant; Visit Provider Orthopaedic Surgery
DX: M75.42 Impingement syndrome of left shoulder (principal)
CPT/HCPCS: 99203

== ENCOUNTER 2024-10-03 12:38 | Outpatient (REF) | payer MEDICAID, SELFPAY ==
--- OUTSIDE RECORDS SUMMARY | 2024-10-04 13:40 | XMS_ITS | Encounter Summary ---
Author Organization [facility] Address [address] [place] [address] Care Team Providers Care Integrated Circuits Inspector Name Role Phone Pcp, No Primary Care Provider Unavailabl e Pcp, No Unavailable Unavailable Daniela Blanco MD Primary Care Provider [phone] Umesh Jewell MD Unavailable [phone] Encounter Details Date Type Department Care Team ([facility] st Contact Info) Description 12/10/2014 Scanned Document [address] [place] [phone] Provider, Generic Social History Tobacco Use [...] on filedocumented in this encounter Care Teams Integrated Circuits Inspector Relationship Specialty Start Date End Date Pcp, No PCP - General 12/30/14 05/12/15 Daniela Blanco MD PCP - General Internal Medicine 05/13/15 09/25/18 Pcp, No 12/30/14 08/21/18 Umesh Jewell MD [address] [id number] Ophthalmology 08/22/18 documented as of this encounter
== END 2024-10-03 12:39 | disposition home or self-care (01) ==
LOC: HO.HOSX 12:38
PROVIDERS: Visit Provider Orthopaedic Surgery
DX: M25.512 Pain in left shoulder (principal); M75.42 Impingement syndrome of left shoulder
CPT/HCPCS: 99202

== ENCOUNTER 2025-02-21 10:05 | Outpatient (AMB) | payer MEDICAID, SELFPAY ==
--- OUTSIDE RECORDS SUMMARY | 2024-02-02 09:00 | XMS_ITS | Encounter Summary ---
Author Organization [facility] Address [address] [place] [address] Care Team Providers Care Proteomics Scientist Name Role Phone Ori Dolan Primary Care Provider [phone] Encounter Details Date Type Department Care Team (Late st Contact Info) Description 02/02/2024 10:00 AM EDT Hospital Encounter TH HISTORIC ENCOUNTERS [facility]AST[facility] CONVERSION ONLY Ori Dolan PA [address] [place] [phone] Social History Tobacco Use Types Packs/Day Years Used Date Smoking Tobacco: Never Smokeless Tobacco: Never Alcohol Use Standard Drinks/Week Comments Yes 0 (1 standard drink = 0.6 oz pur e alcohol) Sex and Gender Information Value Date Recorded Sex Assigned at Male 06/19/2024 8:45 AM EST Legal Sex Male 6:22 AM EST Gender Identity Male 06/19/2024 8:45 AM EST Sexual Orientation Straight 06/19/2024 8: 45 AM EST documented as of this encounter Plan of Treatment Upcoming Encounters Date Type Department Care Team (Late st Contact Info) Description 03/20/2025 10:00 AM EST Office Visit Orthopedic Surgery - [place] [address] [facility] [address] [place] [phone] Magdiel Slater, JAYLON [address] [facility] [address] [place] [address] documented as of this encounter Visit Diagnoses Not on filedocumented in this encounter Care Teams Proteomics Scientist Relationship Specialty Start Date End Date Ori Dolan PA [address] [place] [phone] PCP - General Internal Medicine 10/21/21 documented as of this encounter
[2025-02-21 10:09] VITALS: BP 107/79; PULSE 90; O2SAT 98; BMI 39.0
--- NOTE | 2025-02-21 10:09 | MHC.OFFVIS ---
Vital Signs 02/21/25 10:09 Height 6 ft 1 in Weight 296 lb BMI 39.0 BP 107/79 Blood Pressure Location Rt radial Position Sitting Pulse 90 Pulse Source Pulse Oximeter Pulse Oximetry (%) 98 Intake Visit Reasons: Left shoulder pain Intake Note: Aidan is a 49 year old male left hand dominant male who presents with complaints of progressively worsening left shoulder pain and weakness. The patient states that he fell directly onto his left shoulder in July of 2023 when he was helping his parents. He has been going to formal physical therapy which has given him minimal relief. He has had a cortisone injection which gave him no relief but did significantly elevated his blood glucose levels. He has tried Tylenol and anti-inflammatory medicines which gave him minimal relief. Allergies cyclobenzaprine (From Flexeril) Allergy (Severe, Verified 02/21/25 10:23) Hallucinations oxycodone Allergy (Severe, Verified 02/21/25 10:23) facial itching lactose Allergy (Mild, Verified 02/21/25 10:23) Gastrointestinal Upset Medication List - Last Reconciled 02/21/25 by Adonis Leal MD albuterol sulfate 90 mcg/actuation 2 puffs inhalation Q4-6H PRN atorvastatin 80 mg PO DAILY cholecalciferol (vitamin D3) (Vitamin D3) 125 mcg PO DAILY empagliflozin (Jardiance) 10 mg PO QAM fenofibrate nanocrystallized 145 mg PO DAILY fexofenadine 180 mg PO BID fluticasone propion-salmeterol 500-50 mcg/dose (Advair Diskus) 1 ea inhalation BID fluticasone propionate 50 mcg/actuation 2 sprays intranasal DAILY insulin glargine (Lantus Solostar U-100 Insulin) 10 units subcut BEDTIME lisinopril-hydrochlorothiazide 20-12.5 mg 1 tab PO DAILY metformin 500 mg PO BID [facility] Medical History Spinal stenosis Left leg weakness Environmental allergies Back pain 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 Hypothyroid Disorder of pineal gland Depression DDD (degenerative disc disease), lumbar Anxiety Asthma Seasonal allergies Elevated cholesterol HTN (hypertension) Diabetes MARY on CPAP Surgical History Hx of hand surgery (~2023) Hx of spinal surgery (11/22/22) History of eyelid surgery Social History Household Members: None Housing: House Are you a primary care attendant to a significant other at home: No Do you presently have visiting nurse or other home services: No Patient Tobacco Use Status: Never used Tobacco Second Hand Smoke Exposure: No Substance Use Type: Marijuana service: No Current occupational status: unemployed Current occupation: rt handed Physical Exam Vital Signs: Last Vital Signs Pulse 90 02/21/25 10:09 BP 107/79 02/21/25 10:09 Pulse Ox 98 02/21/25 10:09 BMI result Body Mass Index 39.0 Const Other: Well-nourished well-developed very friendly male awake alert and oriented x3 in no acute distress Extrem Other: Left shoulder examination shows decreased range of motion when compared to his right shoulder, 4+ out of 5 strength with supraspinatus testing, positive impingement signs, tenderness over his acromioclavicular joint, no instability Results Reviewed Results Reviewed: MRI of the patient's left shoulder show severe acromioclavicular joint narrowing, a type 2 acromion, signal change within the supraspinatus tendon due to partial-thickness tearing versus a small full-thickness tear Assessment & Plan Assessment & Plan (1) Left shoulder pain: Code(s): M25.512 - Pain in left shoulder Category: Medical Plan Mr. Avendano presents with progressively worsening left shoulder pain due to impingement syndrome, acromioclavicular joint arthritis and rotator cuff tendinosis versus a small rotator cuff tear. I had a lengthy discussion with the patient regarding the treatment options. At this point he has failed continued non operative treatments. The risks and benefits of left shoulder surgery were discussed at length with the patient. The patient wishes to proceed with surgery. Surgery will involve left shoulder arthroscopic distal clavicle excision, left shoulder arthroscopic acromioplasty and possible left shoulder rotator cuff repair should a full-thickness tear be found at the time of his surgery. A prescription for Dilaudid was sent to the patient's [facility] pharmacy. He will follow up as instructed. Feel free to call me at any time should questions regarding his orthopedic management arise. I spent 21 minutes in reviewing the patient's records and imaging studies, seeing the patient and documenting in the medical record. Medications: New hydromorphone (Dilaudid) Partial Fill upon patient request. Take 1-2 tabs every 4 hours as needed for pain following your left shoulder surgery 4 mg (2 x 2 mg) PO Q4H 40 tabs 0RF Coding Level of Care Code Est Pt Level 3 (36458) Complex EM visit Add On G2211 Diagnoses Left shoulder pain M25.512
--- OUTSIDE RECORDS SUMMARY | 2025-02-21 11:46 | XMS_ITS | Clinical Summary ---
Author Organization [facility] Address [address] [facility] [address] [place] [address] Care Team Providers Care Summer Internship Name Role Phone Unavailable Primary Care Provider [...] series) 2052 HIV Screening Completed 07/03/2021 Hepatitis B Vaccines Completed 02/17/2022, 01/18/2022, [...]
--- OUTSIDE RECORDS SUMMARY | 2025-02-21 11:46 | XMS_ITS | Encounter Summary ---
Author Organization [facility] Address [address] [place] [address] Care Team Providers Care Ring Cutter Lathe Operator Name Role Phone Pcp, No Primary Care Provider Unavailabl e Pcp, No Unavailable Unavailable Daniela Blanco MD Primary Care Provider [phone] Umesh Jewell MD Unavailable [phone] Encounter Details Date Type Department Care Team ([facility] st Contact Info) Description 12/10/2014 Scanned Document [address] [place] [phone] Provider, Generic Social History Tobacco Use [...] on filedocumented in this encounter Care Teams Ring Cutter Lathe Operator Relationship Specialty Start Date End Date Pcp, No PCP - General 12/30/14 05/12/15 Daniela Blanco MD PCP - General Internal Medicine 05/13/15 09/25/18 Pcp, No 12/30/14 08/21/18 Uemsh Jewell MD [address] [id number] Ophthalmology 08/22/18 documented as of this encounter
--- OUTSIDE RECORDS SUMMARY | 2025-02-21 11:46 | XMS_ITS | Encounter Summary ---
Author Organization [facility] Address [address] [place] [address] Care Team Providers Care Inspector Firearms Name Role Phone Pcp, No Unavailable Unavailable Daniela Blanco MD Primary Care Provider [phone] Umesh Jewell MD Unavailable [phone] Encounter Details Date Type Department Care Team (Late st Contact Info) Description 05/20/2015 Scanned Document [address] [phone] Provider, Generic Social History Tobacco [...] on filedocumented in this encounter Care Teams Inspector Firearms Relationship Specialty Start Date End Date Daniela Blanco MD PCP - General Internal Medicine 05/13/15 09/25/18 Pcp, No 12/30/14 08/21/18 Umesh Jewell MD [address] [address] Ophthalmology 08/22/18 documented as of this encounter
--- OUTSIDE RECORDS SUMMARY | 2025-02-21 11:46 | XMS_ITS | Encounter Summary ---
Author Organization [facility] Address [address] [place], [place] [id number] Care Team Providers Care Patient Account Analyst Name Role Phone Pcp, No Unavailable Unavailable Daniela Blanco MD Primary Care Provider [phone] Umesh Jewell MD Unavailable [phone] Encounter Details Date Type Department Care Team (Late st Contact Info) Description 08/23/2016 Scanned Document [address] [phone] Provider, Generic Social History Tobacco [...] on filedocumented in this encounter Care Teams Patient Account Analyst Relationship Specialty Start Date End Date Daniela Blanco MD PCP - General Internal Medicine 05/13/15 09/25/18 Pcp, No 12/30/14 08/21/18 Umesh Jewell MD [address] [id number] Ophthalmology 08/22/18 documented as of this encounter
--- OUTSIDE RECORDS SUMMARY | 2025-02-21 11:47 | XMS_ITS | Clinical Summary ---
Author Organization [facility] Address [address] [place] [address], [place] [address] Care Team Providers Care Underwriting Analyst Name Role Phone Ori Dolan MD Primary Care Provider [phone] Allergies Active Allergy Reactions Criticality Noted Date [...] 03/25/2022 Obstructive sleep apnea 12/04/2018 Overview (10/27/2022): [facility] Home Sleep Apnea Test: Date 11/29/2018; Wt 297#; BMI 38; ROXANN 13, AI 6; HI 7; Unclassified apneas 39; Obstructive apneas 0; Central apneas 0; Mixed apneas 0; hypopneas 41; average oxygen saturation 95% (lowest 83% without saturations <88% for 5% or more of study) - Obstructive Sleep Apnea - mild; mostly hypopneas; without sleep related hypoventilation by 2019 home sleep apnea test. [facility] Home Sleep Apnea Test: Date 11/29/2018; Wt [...] multiple conservative treatments including injections, physical therapy, animal care provider. Patient had lumbar spine MRI 01/11/2022 at [facility] that shows L5-S1 degenerative disc disease with [...] multiple conservative treatments including injections, physical therapy, animal care provider. Patient had lumbar spine MRI 01/11/2022 at [facility] that shows L5-S1 degenerative disc disease with [...] 01/18/2022, 2020 Insurance Medicaid [place] Care Teams Underwriting Analyst Relationship Specialty Start Date End Date Ori Dolan MD [address] [place] [address] PCP - General Physician Dispatch Supervisor 09/28/22
--- OUTSIDE RECORDS SUMMARY | 2025-02-21 11:47 | XMS_ITS | Clinical Summary ---
Author Organization [facility] Address [address] [place] [address] Care Team Providers Care Lens Cleaner Name Role Phone Umesh Jewell MD Unavailable [phone] Allergies Active Allergy Reactions Criticality Noted [...] Very High Test Performed at: [facility], CLIA#:[id number] Blood specimen (specimen) Blood specimen / [...] 3.0 Ratio CLP Comment:Test Performed at: [facility], CLIA#:[id number] Blood specimen (specimen) Blood specimen / [...] Most Recently Relevant to Health Maintenance Insurance [facility] Care Teams Lens Cleaner Relationship Specialty Start Date End Date Umesh Jewell MD [address] [address] Ophthalmology 08/22/18
--- OUTSIDE RECORDS SUMMARY | 2025-02-21 11:47 | XMS_ITS | Clinical Summary ---
Author Organization [facility] Address [address] [place] [address] Care Team Providers Care Silk Spreader Name Role Phone Ori Dolan Primary Care Provider Source Comments PLEASE NOTE, if this patient is a minor, it may be UNLAWFUL to discuss sensitive information that is contained in these records (such as FAMILY PLANNING, MENTAL HEALTH or SUBSTANCE ABUSE) with the minor patient's parent or other person without the patient's specific authorization.[facility] Allergies Active Allergy Reactions Criticality Noted Date Comments Cyclobenzaprine Other (See Comments) High 03/04/2006 CAUSE ASTHM EXACERFATION Hears voices Other Reaction(s): heard voices , Other (See Comments) CAUSE ASTHM EXACERFATION Hears voices CAUSE ASTHM EXACERFATION Hears voices Flexeril CAUSE ASTHM EXACERFATION Levonorgestrel-Ethinyl Estrad 11/09/2018 Seasonal Allergies Levothyroxine Other (See Comments) Medium 04/04/2012 Depression Other Reaction(s): Other (see comments) Depression Levothyroxine Sodium Other Reaction(s): OTHER Depression Lorazepam Other (See Comments) 02/07/2013 anxiety Oxycodone Itching 03/29/2019 Medications fexofenadine (MANJIT) 180 mg tablet Take 1 Tablet by mouth once daily 019 Active lancets (FREESTYLE LANCETS) 28 gaugeIndications :Type 2 diabetes mellitus without complication, unspecified whether long term care pharmacist insulin use DAILY. 100 Each 11 024 Active flash glucose scanning reader (FREESTYLE KATARINA 2 READER) miscIndications: Type 2 diabetes mellitus with hyperglycemia, without long-term current use of insulin Use to test blood glucose at least 3 times daily (Freestyle Katarina 2) 1 Each 024 Active blood sugar diagnostic stripsIndication s:Type 2 diabetes mellitus with hyperglycemia, without long-term current use of insulin Use to test blood glucose at least 3 times daily. 100 Each 5 024 Active fenofibrate (TRICOR) 145 mg tab TAKE 1 TABLET BY MOUTH EVERY DAY 90 Tablet 2 025 Active hydrOXYzine HCL (ATARAX) 25 mg tabletIndication s:Eczema, unspecified type Take 1 Tablet by mouth 3 (three) times daily as needed for sleep or itching 30 Tablet 1 025 Active VENTOLIN HFA 90 mcg/actuation inhalerIndicatio ns:Moderate persistent reactive airway disease with acute exacerbation INHALE 2 PUFFS INTO THE LUNGS EVERY 4 (FOUR) HOURS NEEDED FOR SHORTNESS OF BREATH OR WHEEZING 36 Each 2 025 Active FREESTYLE KATARINA 2 SENSOR kitIndications:T ype 2 diabetes mellitus with hyperglycemia, without long-term current use of insulin Apply sensor to back of upper arm and change every 14 days. Use to test blood glucose at least 3 times daily. (Freestyle Katarina 2 sensor) 2 Kit 11 025 Active LANTUS SOLOSTAR U-100 INSULIN 100 unit/mL (3 mL) penIndications:T ype 2 diabetes mellitus with hyperglycemia, with long-term current use of insulin Inject 10 Units into the skin nightly at bedtime 15 mL 1 025 Active omega 1-yyk-jct-fish oil 1,000 (120-180) mg capsuleIndicatio ns:Type 2 diabetes mellitus with hyperglycemia, with long-term current use of insulin Take 1 Capsule by mouth once daily. 90 Capsule 3 025 Active diclofenac sodium (VOLTAREN) 1 % gelIndications:C hronic left shoulder pain Apply 4 g topically 2 (two) times daily. 100 g 1 025 Active metFORMIN (GLUCOPHAGE) 500 mg tabletIndication s:Type 2 diabetes mellitus with hyperglycemia, with long-term current use of insulin Take 1 Tablet by mouth 2 (two) times daily with a meal. 180 Tablet 1 025 Active pen needle, diabetic (BD ULTRA-FINE SHORT PEN NEEDLE) 31 gauge x 5/16 ndleIndications: Type 2 diabetes mellitus with hyperglycemia, without long-term current use of insulin Use to administer insulin once daily 100 Each Active alcohol swabs (BD ALCOHOL SWABS) USE ONCE DAILY DIRECTED 300 Each Active blood-glucose sensor (FREESTYLE KATARINA 2 PLUS SENSOR) deviIndications: Type 2 diabetes mellitus with hyperglycemia, without long-term current use of insulin Place 1 sensor to back of upper arm every 15 days. Use to monitor blood sugar continuously (Freestyle Katarina 2 Plus). 2 Each 025 Active ADVAIR DISKUS 500-50 mcg/dose diskus inhalerIndicatio ns:Moderate persistent reactive airway disease with acute exacerbation INHALE 1 PUFF INTO THE LUNGS TWICE A DAY 180 Each 025 Active JARDIANCE 10 mg tabIndications:T ype 2 diabetes mellitus with hyperglycemia, without long-term current use of insulin TAKE ONE TABLET BY MOUTH EVERY MORNING 30 Tablet 2 025 Active fluticasone (FLONASE) 50 mcg/actuation nasal sprayIndications :Moderate persistent reactive airway disease with acute exacerbation PLACE 2 SPRAYS IN BOTH NOSTRILS ONCE DAILY 48 mL 025 Active atorvastatin (LIPITOR) 80 mg tabletIndication s:Hypercholester emia TAKE 1 TABLET BY MOUTH EVERY DAY 90 Tablet 1 025 Active fenofibrate (TRICOR) 145 mg tab TAKE 1 TABLET BY MOUTH EVERY DAY 90 Tablet 2 025 Active lisinopriL-hydro chlorothiazide 20-12.5 mg per tabletIndication s:Essential hypertension Take 1 Tablet by mouth once daily. 90 Tablet 1 025 Active dextroamphetamin e-amphetamine (ADDERALL) 10 mg tabletIndication s:Attention deficit hyperactivity disorder (ADHD), unspecified ADHD type Take 1 Tablet by mouth once daily. Max Daily Amount: 10 mg 30 Tablet 025 Active fenofibrate (TRICOR) 145 mg tab Take 1 Tablet by mouth once daily 90 Tablet 2 025 2024 Discontinued lisinopriL-hydro chlorothiazide 20-12.5 mg per tabletIndication s:Essential hypertension TAKE 1 TABLET BY MOUTH EVERY DAY 90 Tablet 1 025 2024 Discontinued lisinopriL-hydro chlorothiazide 20-12.5 mg per tabletIndication s:Essential hypertension TAKE 1 TABLET BY MOUTH EVERY DAY 90 Tablet 1 025 2024 Discontinued(R eorder (E-Cancel Not Sent)) Active Problems Problem Noted Date Diagnosed Date Class 1 obesity 09/06/2024 Class 2 obesity 09/06/2024 Family history of colon cancer 02/22/2024 Hard stool 02/22/2024 Encounter for screening colonoscopy 02/21/2024 Class 2 obesity due to exces s calories without serious comorbidity with body mass index (BMI) of 38.0 to 38.9 in adult 10/16/2023 History of ankle x-ray 09/28/2023 Overview (09/28/2023): 09/27/2023 - [facility] Radiology RESULT: Foot Min 3 Views Left Left ankle 3 views Left foot 3 views Reason: Pain after rolling ankle COMPARISON: None. FINDINGS: No evidence of acute or healing fracture or bone lesion. Intact ankle mortise and talar dome. Moderate Achilles heel spur but no other arthritic changes. Normal soft tissues. IMPRESSION: No acute abnormality of the foot or ankle. Back pain 10/27/2022 Primary insomnia 09/29/2022 09/29/2022 Chronic midline thoracic back pain 03/25/2022 Chronic thoracic back pain 03/25/2022 Depressive disorder 02/15/2022 Obstructive sleep apnea 12/04/2018 Overview (05/11/2021): [facility] Home Sleep Apnea Test: Date 11/29/2018; Wt 297#; BMI 38; ROXANN 13, AI 6; HI 7; Unclassified apneas 39; Obstructive apneas 0; Central apneas 0; Mixed apneas 0; hypopneas 41; average oxygen saturation 95% (lowest 83% without saturations <88% for 5% or more of study) - Obstructive Sleep Apnea - mild; mostly hypopneas; without sleep related hypoventilation by 2018 home sleep apnea test. 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 11/01/2014 Morbid obesity 11/01/2014 Type 2 diabetes mellitus wit h hyperglycemia, with long-term current use of insulin 11/01/2014 Type 2 diabetes mellitus wit hout complication, without long-term current use of insulin 11/01/2014 Dysthymic disorder 11/01/2014 Subclinical hypothyroidism 11/01/2014 Intestinal disaccharidase deficiency 11/01/2014 Depression, major, recurrent, moderate 3 Panic disorder with agoraphobia 02/12/2013 Major depressive disorder, recurrent episode, mo derate 02/12/2013 Hypothyroid 04/30/2011 DDD (degenerative disc disease), lumbar 01/15/20 10 Overview (03/25/2022): Last Assessment & Plan: Patient was last [...] multiple conservative treatments including injections, physical therapy, client care consultant. Patient had lumbar spine MRI 01/11/2022 at [facility] that shows L5-S1 degenerative disc disease with [...] call with any additional questions or concerns. Degeneration of intervertebral disc of lumbar re gion 01/14/2010 Overview (09/06/2024): Last Assessment & Plan: Patient was last [...] multiple conservative treatments including injections, physical therapy, client care consultant. Patient had lumbar spine MRI 01/11/2022 at [facility] that shows L5-S1 degenerative disc disease with [...] additional questions or concerns. Essential hypertension 08/20/2009 HTN (hypertension) 08/20/2009 Asthma 08/29/2005 Resolved Problems Problem Noted Date Diagnosed Date Resolved Date Bronchitis 11/08/2022 10/08/2024 Encounters Date Type Department Care Team Description 02/14/2025 9:40 AM EDT Office Visit [facility] [address] [place] [phone] Ori Dolan PA 11/22/2024 Interim Notes [facility] [address] [place] [phone] Zehra Cordoba MA from Last 3 Months Immunizations Immunization Administration Dates Next Due Flu, Preservative Free 01/26/2023,01/18/2022, Hep B, Adult/Adol (RGOAXYG-H-JGRTQ/RECOMBIVAX-ADULT) 07/09/2021 Hep B,adult,adjuvanted (HEPLISAV) 02/17/2022,06/2021 INFLUENZA, SEASONAL, INJECTABLE 01/18/20 13,01/17/2013,04/04/2012,04/04,01/16/2010,01/16/2010,01/01/2009 ,02/12/2008 Influenza (FLUBLOK),recombinant,injectable,prese rvative Free 03/02/2024 MODERNA COVID-19 VACCINE BIV ALENT, BLUE CAP, 6M+ 01/18/2022 Moderna COVID-19 Vaccine, re d cap blue label, 12+ Primary Series 07/30/2020,07/30/2020 PFIZER COVID VACCINE, PURPLE CAP, 12+ 02/10/2021 ,02/10/2021 PNEUMOCOCCAL CONJUGATE PCV 2 0 (Prevnar 20) 01/26/2023 PNEUMOCOCCAL POLYSACCHARIDE PPV23 (Pneumovax 23) 04/04/2012,04/04/2012 Pfizer COVID-19 (Comirnaty), Mrna, Lnp-s, Pf, Daren-sucrose, 30 Mcg/0.3 Ml, 12yr+ 09/06/2024 TDAP 07/09/2021, 2,04/04/2012,02/11 Td (adult) unspecified 01/19/2007 Td (adult),2 Lf tetanus toxo id (TDVAX), preservative free 01/19/2007 Family History Medical History Relation Name Comments Cancer Father Diabetes Father Relation Name Status Comments Father Other had CABG Mother Other has pacemaker a nd AF Social History Tobacco Use Types Packs/Day Years Used Date Smoking Tobacco: Never Passive Smoke Exposure: Never Smokeless Tobacco: Never Tobacco Cessation:Counseling Given: Not Answered Alcohol Use Standard Drinks/Week Comments Not Currently 0 (1 standard drink = 0.6 oz pur e alcohol) Social Connections Answer Date Recorded How often do you feel lonely or isolated from th ose around you? 1 06/08/2024 Financial Resource Strain Answer Date R ecorded Hard to pay for: Food 1 06/08/2024 Stress Answer Date Recorded Do you feel these kinds of stress these days? 1 06/08/2024 Food Insecurity Answer Date Recorded Hard to pay for: Food 1 06/08/2024 Transportation Needs Answer Date Record ed Hard to pay for: Transportation 1 06/08/2024 Housing Stability Answer Date Recorded Hard to pay for: Rent/Mortgage payment 1 06/08/2024 Safety and Environment Answer Date Harsha rded Safety 0 01/26/2023 Utilities Answer Date Recorded Hard to pay for: Utilities 1 06/08 Employment Answer Date Recorded Employment 0 05/11/2021 Sex and Gender Information Value Date Recorded Sex Assigned at Male 05/07/2021 8:58 AM PST Legal Sex Male 8:40 AM PDT Gender Identity Male 05/07/2021 8:58 AM PST Sexual Orientation Straight 05/07/2021 8: 58 AM PST Last Filed Vital Signs Vital Sign Reading Time Taken Comments Blood Pressure 113/78 02/14/2025 9:41 AM EDT Pulse 90 02/14/2025 9:41 AM EDT Temperature 37.2 C (99 F) 02/14/2025 9:41 AM EDT Respiratory Rate 20 02/14/2025 9:41 AM EDT Oxygen Saturation 95% 02/14/2025 9:41 AM EDT Inhaled Oxygen Concentration - - Weight 127.8 kg (281 lb 12.8 oz) 02/14/2025 9:41 AM EDT Height 182.9 cm (6') 02/14/2025 9:41 AM EDT Body Mass Index 38.22 02/14/2025 9:41 AM EDT Plan of Treatment Upcoming Encounters Date Type Department Care Team (Late st Contact Info) Description 04/23/2025 9:00 AM EST Office Visit [facility] [address] [place] [phone] Corie Haynes [address] [place] [address] Health Maintenance Due Date Last Done Comments CT Colonography 2022 FIT/gFOBT 2022 Fecal DNA 2022 Flexible Sigmoidoscopy 2022 Anxiety Screening 08/10/2022 08/10/2021 Annual Wellness (Adult): Ind icated (All Coverage) 01/27/2024 01/26/2023, 09/29/2022, 07/09/2021, Additional history exists Depression Monitoring 09/05/2024 06/08/2024 , 03/02/2024, 12/06/2023, Additional history exists TSH Monitoring 12/05/2024 12/06/2023, 09/17, 07/03/2021 [id number] ( season) 2024 09/06/2024, 01/28/2023, 01/18/2022, Additional history exists Imm-Influenza (#1) 2024 03/02/2024, 1 , 01/18/2022, Additional history exists Dental Prophy 04/26/2025 10/22/2024, 12/, 10/10/2023, Additional history exists Diabetes Foot Exam 05/16/2025 05/16/2024, 0 12/06/2023, 09/29/2022, Additional history exists Hemoglobin A1c 05/17/2025 02/14/2025, 05/0 11/2024, 06/08/2024, Additional history exists Lipid Screening 08/23/2025 08/23/2024, 2 04/2022, 07/03/2021, Additional history exists Urine Albumin Creatinine Rat io Screening 08/23/2025 08/23/2024 Retinopathy Screening 10/15/2025 10/15/2024 , 04/22/2023, 12/15/2022, Additional history exists Dental BW 10/24/2025 10/22/2024, 03/20, 10/10/2023, Additional history exists Dental Examination 10/24/2025 10/22/2024, 1 , 10/10/2023, Additional history exists Dental Perio Charting 10/24/2025 10/22/2024, 023 Serum Creatinine 02/14/2026 02/14/2025, 11/2024, 10/06/2022, Additional history exists Tobacco Screening 02/14/2026 02/14/2025, 07/09/2021 Dental FMX/Pano 03/18/2028 03/16/2023 Imm-DTaP/Tdap/Td (5 - Td or Tdap) 07/10/2031 07/09/2021, 04/04/2012, 04/04/2012, Additional history exists Colonoscopy 10/11/2034 10/11/2024 Colorectal Cancer Screening 10/11/2034 Imm-RSV (adult) (1 - 1-dose 75+ series) 2052 HIV Screening Completed 07/03/2021, 07/03/2021 Hepatitis C Screening Completed 07/03/2021 Imm-Hepatitis B Completed 02/17/2022, 06/2021, 07/09/2021 Imm-Pneumococcal Completed 01/26/2023, , 04/04/2012 Alcohol and Drug Screen Completed 06/08/19, 09/05/2023, 01/26/2023, Additional history exists Procedures Procedure Name Priority Date/Time Associated Diagnosis Comments COMPREHENSIVE METABOLIC PANEL Routine 02/14/2025 10:[address]-T wave electrocardiographic changes Preop general physical exam BLOOD COUNT COMPLETE AUTOMATED Routine 02/14/2025 10:[address]-T wave electrocardiographic changes Preop general physical exam HGBA1C W/MPG Routine 02/14/2025 10:[address]-T wave electrocardiographic changes Preop general physical exam CARD SCANNED DOCUMENT 02/14/2025 3:00 AM EDT CARD SCANNED DOCUMENT 02/14/2025 3:00 AM EDT MEDICATIONS SCANNED DOCUMENT 11/22/2024 3:00 AM EDT COMP PERIODONTAL EVALUATION - NEW/EST PATIENT Routine 10/22/2024 9:00 AM EDT Encounter for dental examination and cleaning with abnormal findings Recurrent dental caries extending into dentin BITEWINGS - FOUR RADIOGRAPHIC IMAGES Routine 10/22/2024 9:00 AM EDT Tooth gnosticist with margins open Encounter for dental examination and cleaning with abnormal findings Recurrent dental caries extending into dentin PROPHYLAXIS - ADULT Routine 10/22/2024 9 :00 AM EDT Encounter for dental examination and cleaning with abnormal findings Recurrent dental caries extending into dentin PERIODIC ORAL EVALUATION ESTABLISHED PATIENT Routine 10/22/2024 9:00 AM EDT Encounter for dental examination and cleaning with abnormal findings Recurrent dental caries extending into dentin BRAKE REPAIRER HYDRAULIC REPORT 10/15/2024 3:00 AM EDT HISTORIC COLONOSCOPY 10/11/2024 3:00 AM EDT LIPID PANEL Routine 08/23/2024 10:02 AM EDT Depression, major, recurrent, moderate ([facility]) Morbid obesity ([facility]) Type 2 diabetes mellitus with hyperglycemia, with long-term current use of insulin ([facility]) Hypothyroidism, unspecified type Essential hypertension Hypercholesteremia MICROALBUMIN/CREATINI NE RATIO, URINE, RANDOM Routine 08/23/2024 10:02 AM EDT REFERRAL TO PODIATRY Routine 05/16/2024 3:00 AM EST Type 2 diabetes mellitus with hyperglycemia, without long-term current use of insulin ([facility]) TSH W/RFLX FREE T4 Routine 12/06/2023 9: 15 AM EDT Hypothyroidism, unspecified type Full INTRAORAL - COMP SERIES OF RADIOGRAPHIC IMAGES Routine 03/16/2023 11:00 AM EST Caries of enamel (incipient) HIV 1/2 AG & AB W/RFLX (4TH GEN) Routine 07/03/2021 8:46 AM EDT Morbid obesity ([facility]) Routine adult health maintenance Exposure to hepatitis B HEPATITIS C AB W/RFLX HCV RNA, QT, RT PCR Routine 07/03/2021 8:46 AM EDT Morbid obesity ([facility]) Routine adult health maintenance Exposure to hepatitis B from Last 3 Months or Most Recently Relevant to Health Maintenance Results * (ABNORMAL) HGBA1C W/MPG Routine (02/14/2025 10:25 AM EDT) HEMOGLOBIN A1C 7.3(H) <5.7 % 02/15/2025 6:38 AM EDT [employer] [facility] MEAN PLASMA GLUCOSE 183 mg/dL (calc) 02/15/2025 6:38 AM EDT [facility] Blood Blood / Unknown 02/14/2025 1 0:25 AM EDT 02/15/2025 3:43 AM EDT Narrative [facility] - 02/15/2025 7:02 AM EDT For someone without known diabetes, a hemoglobin A1c value of 6.5% or greater indicates that they may have diabetes and this should be confirmed with a follow-up test. . For someone with known diabetes, a value <7% indicates that their diabetes is well controlled and a value greater than or equal to 7% indicates suboptimal control. A1c targets should be individualized based on duration of diabetes, age, comorbid conditions, and other considerations. . Currently, no consensus exists regarding use of hemoglobin A1c for diagnosis of diabetes for children. . us Ori [facility] - BLOOD DRAW Final Result [facility] [address] [address], [facility] [address] [phone] * (ABNORMAL) BLOOD COUNT COMPLETE AUTOMATED Routine (02/14/2025 10:25 AM EDT) WHITE BLOOD CELL COUNT 6.7 3.8 - 10.8 Thousand/ uL 02/15/2025 4:31 AM EDT [facility] RED BLOOD CELL COUNT 4.84 4.20 - 5.80 Million/u L 02/15/2025 4:31 AM EDT [facility] HEMOGLOBIN 14.0 13.2 - 17.1 g/dL 02/15/2025 4:31 AM EDT [facility] HEMATOCRIT 44.2 38.5 - 50.0 % 02/15/2025 4:31 AM EDT [facility] MCV 91.3 80.0 - 100.0 fL 02/15/2025 4:31 AM EDT [facility] MCH 28.9 27.0 - 33.0 pg 02/15/2025 4:31 AM EDT [facility] MCHC 31.7(L) 32.0 - 36.0 g/dL 02/15/2025 4:31 AM EDT [facility] RDW 13.1 11.0 - 15.0 % 02/15/2025 4:31 AM EDT [facility] PLATELET COUNT 294 140 - 400 Thousand/ uL 02/15/2025 4:31 AM EDT [facility] MPV 11.1 7.5 - 12.5 fL 02/15/2025 4:[facility] Blood Blood / Unknown 02/14/2025 1 0:25 AM EDT 02/15/2025 3:43 AM EDT Narrative [facility] - 02/15/2025 5:04 AM EDT For adults, a slight decrease in the calculated MCHC value (in the range of 30 to 32 g/dL) is most likely not clinically significant; however, it should be interpreted with caution in correlation with other red cell parameters and the patient's clinical condition. us Ori [facility] - BLOOD DRAW Final Result [facility] [address] [address], [facility] [address] [place] [address] * (ABNORMAL) COMPREHENSIVE METABOLIC PANEL Routine (02/14/2025 10:25 AM EDT) [facility] GLUCOSE 120(H) 65 - 99 mg/dL 02/15/2025 10:02 AM [employer] [facility] UREA NITROGEN (BUN) 25 7 - 25 mg/dL 02/15/2025 10:02 AM [employer] [facility] CREATININE (blood) 1.43(H) 0.60 - 1.29 mg/dL 02/15/2025 10:02 AM [employer] [facility] EGFR 61 > OR = 60 mL/min/1. 73m2 02/15/2025 10:02 AM [employer] [facility] BUN/CREATININE RATIO 17 6 - 22 (calc) 02/15/2025 10:02 AM [employer] [facility] SODIUM 140 135 - 146 mmol/L 02/15/2025 10:02 AM [employer] [facility] POTASSIUM 4.6 3.5 - 5.3 mmol/L 02/15/2025 10:02 AM [employer] [facility] CHLORIDE 105 98 - 110 mmol/L 02/15/2025 10:02 AM [employer] [facility] CARBON DIOXIDE 27 20 - 32 mmol/L 02/15/2025 10:02 AM [employer] [facility] CALCIUM 9.1 8.6 - 10.3 mg/dL 02/15/2025 10:02 AM [employer] [facility] PROTEIN, TOTAL 6.6 6.1 - 8.1 g/dL 02/15/2025 10:02 AM [employer] [facility] ALBUMIN 3.9 3.6 - 5.1 g/dL 02/15/2025 10:02 AM [employer] [facility] GLOBULIN 2.7 1.9 - 3.7 g/dL (calc) 02/15/2025 10:02 AM [employer] [facility] ALBUMIN/GLOBULI N RATIO 1.4 1.0 - 2.5 (calc) 02/15/2025 10:02 AM [employer] [facility] BILIRUBIN, TOTAL 0.4 0.2 - 1.2 mg/dL 02/15/2025 10:02 AM [employer] [facility] ALKALINE PHOSPHATASE 39 36 - 130 U/L 02/15/2025 10:02 AM [employer] [facility] AST 30 10 - 40 U/L 02/15/2025 10:02 AM [employer] [facility] ALT 35 9 - 46 U/L 02/15/2025 10:02 AM EDT [employer] [facility] Blood Blood / Unknown 02/14/2025 1 0:25 AM EDT 02/15/2025 5:40 AM EDT Narrative [facility] [employer] [facility] - 02/15/2025 10:02 AM EDT . Fasting reference interval . For someone without known diabetes, a glucose value between 100 and 125 mg/dL is consistent with prediabetes and should be confirmed with a follow-up test. . us Ori Dolan PA LAB - BLOOD DRAW Final Result [facility] [address] [place] [id number], [employer] [address] [place] [phone] * CARD SCANNED DOCUMENT (02/14/2025 3:00 AM EDT) Only the most recent of2 resultswithin the time period is included. 02/14/2025 3:0 0 AM EDT us Ori Rutledgevais PA SCAN ECGS Final Result * MEDICATIONS SCANNED DOCUMENT (11/22/2024 3:00 AM EDT) 11/22/2024 3:00 AM EDT us Ori Rutledgevais PA SCAN MEDS OTHER ORDERS Final R esult * BRAKE REPAIRER HYDRAULIC REPORT (10/15/2024 3:00 AM EDT) 10/15/2024 3:00 AM EDT us Ori Rutledgevais PA SCAN PROCEDURES Final Result * HISTORIC COLONOSCOPY (10/11/2024 3:00 AM EDT) 10/11/2024 3:00 AM EDT us Ori [facility] PROCEDURES Final Result * MICROALBUMIN/CREATININE RATIO, URINE, RANDOM (08/23/2024 10:02 AM EDT) CREATININE, RANDOM URINE 26 20 - 320 mg/dL [facility] MICROALBUMIN <0.2 mg/dL [facility] Comment: Reference Range Not established MICROALBUMIN/CREA TININE RATIO, RANDOM URINE NOTE <30 [facility] Comment: NOTE: The urine albumin value is less than 0.2 mg/dL therefore we are unable to calculate excretion and/or creatinine ratio. The ADA defines abnormalities in albumin excretion as follows: Albuminuria Category Result (mg/g creatinine) Normal to Mildly increased <30 Moderately increased 30-299 Severely increased > OR = 300 The ADA recommends that at least two of three specimens collected within a 3-6 month period be abnormal before considering a patient to be within a diagnostic category. 08/23/2024 10:0 2 AM EDT 08/23/2024 10:02 AM EDT Ori [facility] URINE AMBULATORY Final Res ult [facility] [address] [address], [facility] [address] [address] * (ABNORMAL) LIPID PANEL (08/23/2024 10:02 AM EDT) CHOLESTEROL, TOTAL 194 <200 mg/dL [facility] HDL CHOLESTEROL 40 > OR = 40 mg/dL [facility] TRIGLYCERIDES 160(H) <150 mg/dL [facility] LDL-CHOLESTEROL 126(H) 99 mg/dL (calc) [facility] Comment: Reference range: <100 Desirable range <100 mg/dL for primary prevention; <70 mg/dL for patients with CHD or diabetic patients with > or = 2 CHD risk factors. LDL-C is now calculated using the Irma calculation, which is a validated novel method providing better accuracy than the Friedewald equation in the estimation of LDL-C. Nicanor GARCIA et al. JOCELYNE. 2013;310(19): 6535-5050 (http://education.Alector/faq/BND109) CHOL/HDLC RATIO 4.9 <5.0 (calc) [facility] NON-HDL CHOLESTEROL 154(H) <130 mg/dL (calc) [facility] Comment: For patients with diabetes plus 1 major ASCVD risk factor, treating to a non-HDL-C goal of <100 mg/dL (LDL-C of <70 mg/dL) is considered a therapeutic option. Blood Blood / Unknown 08/23/2024 1 0:02 AM EDT 08/23/2024 10:02 AM EDT us Ori [facility] - BLOOD DRAW Final Result Performing Organization Address [facility] Co de Phone Number [facility] [address] [address], [facility] [address] [address] * REFERRAL TO PODIATRY (05/16/2024 3:00 AM EST) 05/16/2024 3:00 AM EST us Ori [facility] REFERRAL Final Result * TSH W/RFLX FREE T4 (12/06/2023 9:15 AM EDT) TSH W/REFLEX TO FT4 3.04 0.40 - 4.50 mIU/L [facility] Blood Blood / Unknown 12/06/2023 9 :15 AM EDT 12/06/2023 9:15 AM EDT us Ori [facility] - BLOOD DRAW Final Result Performing Organization Address [facility] Co de Phone Number [facility] [address] [address], [facility] [address] [address] * HEPATITIS C AB W/RFLX HCV RNA, QT, RT PCR (07/03/2021 8:46 AM EDT) HEPATITIS C ANTIBODY NON-REACT DEBO NON-REACT DEBO [facility] SIGNAL TO CUT-OFF 0.00 <1.00 [employer] [facility] Comment: HCV antibody was non-reactive. There is no laboratory evidence of HCV infection. In most cases, no further action is required. However, if recent HCV exposure is suspected, a test for HCV RNA (test code 56282) is suggested. For additional information please refer to http://CELtrak.Merchant View/faq/ACR08f2 (This link is being provided for informational/ educational purposes only.) Blood Blood / Unknown 07/03/2021 8 :46 AM EDT 07/03/2021 8:47 AM EDT Narrative [facility] - 07/09/2021 6:30 PM EDT FASTING:YES Ori [facility] - BLOOD DRAW Edited Result - Final [facility]erved [address] [address], [facility] [address] [address] * HIV 1/2 AG & AB W/RFLX (4TH GEN) (07/03/2021 8:46 AM EDT) Pathologist [facility] HIV AG/AB, 4TH GEN NON-REAC TIVE NON-REAC TIVE [facility] Comment: HIV-1 antigen and HIV-1/HIV-2 antibodies were not detected. There is no laboratory evidence of HIV infection. PLEASE NOTE: This information has been disclosed to you from records whose confidentiality may be protected by state law. If your state requires such protection, then the state law prohibits you from making any further disclosure of the information without the specific written consent of the person to whom it pertains, or as otherwise permitted by law. A general authorization for the release of medical or other information is NOT sufficient for this purpose. For additional information please refer to http://CELtrak.Merchant View/faq/MTI738 (This link is being provided for informational/ educational purposes only.) The performance of this assay has not been clinically validated in patients less than 2 years old. Blood Blood / Unknown 07/03/2021 8 :46 AM EDT 07/03/2021 8:47 AM EDT Narrative [facility] - 07/09/2021 6:30 PM EDT FASTING:YES us Ori [facility] - BLOOD DRAW Final Result [facility] [address] [address], [facility] [address] [address] from Last 3 Months or Most Recently Relevant to Health Maintenance Insurance [facility] [place] MEDICAID DENTAL [address] [employer] DENTAL Care Teams Silk Spreader Relationship Specialty Start Date End Date Ori Dolan PA PCP - General FAMILY MEDICINE, [place] 08/10/21
--- OUTSIDE RECORDS SUMMARY | 2025-02-21 11:47 | XMS_ITS | Clinical Summary ---
Author Organization [address] [facility] Address [address] [place] [address] Phone Care Team Providers Care Superintendent Compressor Stations Name Role Phone Ori Dolan Primary Care Provider [phone] Allergies Active Allergy Reactions Criticality Noted Date [...] 02/15/2022 Obstructive sleep apnea 12/04/2018 Overview (03/14/2024): [facility] Home Sleep Apnea Test: Date [...] complication, without long-term current use of insulin ([facility] V24, 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 V24, 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 Patient had lumbar spine MRI 01/11/2022 at [facility] that shows L5-S1 degenerative disc disease with [...] AM EDT Office Visit Orthopedic Surgery - [address] [address] Magdiel Slater, JAYLON Controlled type 2 diabetes with neuropathy (CMS/HCC V24, CMS/HCC V28) (Primary Dx); Lumbosacral radiculopathy; Hammertoes of both feet; Ingrown toenail of left foot; Metatarsalgia of right foot from Last 3 Months Immunizations Immunization Administration Dates Next Due Hepatitis B ([place]ars-N-Wkspd , Recombivax HB-Adult) 19yo and older 07/09/2021 [...] Site/Laterality Comments OTHER SURGICAL HISTORY Left PROCEDURE: OK UNLISTED PROCEDURE EYELIDS; COMMENT: blepharoplasty HAND SURGERY [...] AM EST Office Visit Orthopedic Surgery - [employer] [facility] [address] [phone] Magdiel Slater, DPM [address] [address] Health Maintenance Due Date Last Done Comments [...] (07/03/2021) Annual BMP Blood Test abstracted Result [facility] Provider HEALTH MAINTENANCE Final Result * HIV Screening (07/03/2021) [facility] HIV Screening abstracted Result [facility] Provider HEALTH MAINTENANCE Final Result * Hepatitis C Screening (07/03/2021) [facility] Hepatitis C Screening abstracted Result [facility] Provider HEALTH MAINTENANCE Final Result * Lipid panel (07/03/2021) [facility] LDL/HDL Ratio 0 Comment:no interpretation, a bstracted Triglycerides 0 mg/dL Comment:no interpretation, a bstracted Cholesterol 0 mg/dL Comment:no interpretation, a bstracted HDL 0 mg/dL Comment:no interpretation, a bstracted LDL Cholesterol 0 mg/dL Comment:no interpretation, a bstracted Blood Venous blood specimen / Unknown Result [facility] Provider LAB BLOOD ORDERABLES Janelle l Result * Urine Albumin Creatinine Ratio (11/09/2018) [facility] Urine Albumin Creatinine Ratio abstracted Result [facility] Provider HEALTH MAINTENANCE Final Result from Last 3 Months or Most Recently Relevant to Health Maintenance Insurance [place]ICAID - [place] Care Teams Superintendent Compressor Stations Relationship Specialty Start Date End Date Ori Dolan PA [address] [place] [address] PCP - General Internal Medicine 10/21/21
== END 2025-02-21 10:40 | disposition home or self-care (01) ==
LOC: HO.HOS 10:05
PROVIDERS: PCP Physician Assistant; Visit Provider Orthopaedic Surgery
DX: M25.512 Pain in left shoulder (principal)
CPT/HCPCS: 99214

== ENCOUNTER → 2025-02-21 10:05 | Outpatient (BNVA) | payer MEDICAID, SELFPAY | PROVIDERS: PCP Physician Assistant; Visit Provider Orthopaedic Surgery | DX: M25.512 Pain in left shoulder (principal) | CPT/HCPCS: 99212 ==

== ENCOUNTER 2025-03-01 08:06 | Day surgery (SDC) | payer MEDICAID, SELFPAY ==
--- OUTSIDE RECORDS SUMMARY | 2024-02-02 10:00 | XMS_ITS | Encounter Summary ---
Author Organization [facility] Address [address] [place] [address] Care Team Providers Care Spot Cleaner Name Role Phone Ori Dolan Primary Care Provider [phone] Encounter Details Date Type Department Care Team (Late st Contact Info) Description 02/02/2024 10:00 AM EDT Hospital Encounter TH HISTORIC ENCOUNTERS [facility] CONVERSION ONLY Ori Dolan PA [address] [place] [phone] Social History Tobacco Use Types Packs/Day Years [...] AM EST Office Visit Orthopedic Surgery - [place] [address] [facility] [address] [place] [phone] Magdiel Slater, JAYLON 175 [facility] [address] [place] [address] documented as of this encounter Visit Diagnoses Not on filedocumented in this encounter Care Teams Spot Cleaner Relationship Specialty Start Date End Date Ori Dolan PA [address] [place] [phone] PCP - General Internal Medicine 10/21/21 documented as of this encounter
--- OUTSIDE RECORDS SUMMARY | 2025-02-05 18:42 | XMS_ITS | Clinical Summary ---
Author Organization [facility] Address [address] [place] [id number] Care Team Providers Care Piano Accompanist Name Role Phone Unavailable Primary Care Provider Unavailabl e Social History Tobacco Use Types Packs/Day Years Used Date Smoking Tobacco: Never Assessed Sex and Gender Information Value Date Recorded Sex Assigned at Not on file Legal Sex Male 9:27 AM EST Gender Identity Not on file Sexual Orientation Not on file Plan of Treatment Health Maintenance Due Date Last Done Comments HIV screening 1990 Hepatitis C screening 1995 Tetanus adult (Td q 10,TDAP once) 1997 Lipid disorder screening 2017 011, 11/12/2010 Colon cancer screening, Colonoscopy 2022 Diabetes screening 2022 11/12/2010 Influenza vaccine 11/16/2024 Covid-19 vaccine series ( - 2023-25 season) 2024 RSV Immunization (1 - 1-dose 75+ series) 2052 Meningococcal B Vaccine Aged Out No l onger eligible based on patient's age to complete this topic Meningococcal Vaccine Aged Out No radha hermila eligible based on patient's age to complete this topic Pneumococcal Vaccine (2 - 49 years) Aged Out No longer eligible b ased on patient's age to complete this topic Procedures Procedure Name Priority Date/Time Associated Diagnosis Comments COMPREHENSIVE METABOLIC PANEL Routine 11/12/2010 8:59 AM EDT LIPID PANEL Routine 11/12/2010 8:59 AM EDT from Last 3 Months or Most Recently Relevant to Health Maintenance Results * (ABNORMAL) Lipid panel (11/12/2010 8:59 AM EDT) Cholesterol 176 115 - 199 mg/dL [facility] HDL 36(L) 40 - 65 mg/dL [facility] Triglycerides 173(H) 30 - 150 mg/dL [facility] Chol/HDL Ratio 5 <=5 [facility] 11/12/2010 8:59 AM EDT Narrative [facility] - 11/13/2010 10:11 AM EDT PT TEL: [phone] us Avery Camacho MD LAB BLOOD ORDERABLES Janelle hernandez Result [facility] [address] [place] [address] * (ABNORMAL) Comprehensive metabolic panel (11/12/2010 8:59 AM EDT) Glucose 97 70 - 100 mg/dL [facility] BUN 14 7 - 20 mg/dL [facility] Creatinine 1.0 0.5 - 1.2 mg/dL [facility] BUN/Creatinine Ratio 14.0 10.0 - 20.0 [facility] Anion Gap 13 7 - 16 [facility] CO2 28.2 22.0 - 30.0 mmol/L [facility] Chloride 100 96 - 106 mmol/L [facility] Sodium 141 135 - 145 mmol/L [facility] Potassium 4.1 3.5 - 5.0 mmol/L [facility] Calcium 9.8 8.8 - 10.2 mg/dL [facility] Total Protein 8.0 6.0 - 8.3 g/dL [facility] Albumin 4.4 3.5 - 5.0 g/dL [facility] Globulin 3.6(H) 2.3 - 3.5 g/dL [facility] A/G Ratio 1.2 1.0 - 2.2 [facility] Aspartate Aminotransferase (AST) 23 0 - 34 U/L [facility] Alanine Aminotransferase (ALT) 31 0 - 34 U/L [facility] Alkaline Phosphatase 91 30 - 130 U/L [facility] Total Bilirubin 0.29 <1.20 mg/dL [facility] 11/12/2010 8:59 AM EDT Narrative [facility] - 11/13/2010 10:11 AM EDT PT TEL: [phone] us Avery Camacho MD LAB BLOOD ORDERABLES Janelle hernandez Result [facility] [address] [place] [id number] from Last 3 Months or Most Recently Relevant to Health Maintenance
--- OUTSIDE RECORDS SUMMARY | 2025-02-05 18:42 | XMS_ITS | Encounter Summary ---
Author Organization [facility] Address [address] [place], [place] [address] Care Team Providers Care Polysomnographic Technologist Name Role Phone Pcp, No Unavailable Unavailable Daniela Blanco MD Primary Care Provider [phone] Umesh Jewell MD Unavailable [phone] Encounter Details Date Type Department Care Team (Late st Contact Info) Description 08/23/2016 Scanned Document [address] [phone] Provider, Generic Social History Tobacco Use Types Packs/Day Years Used Date Smoking Tobacco: Never Alcohol Use Standard Drinks/Week Comments Yes 0 (1 standard drink = 0.6 oz pur e alcohol) socially Sex and Gender Information Value Date Recorded Sex Assigned at Not on file Legal Sex Male 5:59 PM EDT Gender Identity Not on file Sexual Orientation Not on file documented as of this encounter Plan of Treatment Not on file documented as of this encounter Visit Diagnoses Not on filedocumented in this encounter Care Teams Polysomnographic Technologist Relationship Specialty Start Date End Date Daniela Blanco MD PCP - General Internal Medicine 05/13/15 09/25/18 Pcp, No 12/30/14 08/21/18 Umesh Jewell MD [address] [address] Ophthalmology 08/22/18 documented as of this encounter
--- OUTSIDE RECORDS SUMMARY | 2025-02-05 18:42 | XMS_ITS | Encounter Summary ---
Author Organization [facility] Address [address] [place] [address] Care Team Providers Care Assistant Professor Of Dietetics Name Role Phone Pcp, No Unavailable Unavailable Daniela Blanco MD Primary Care Provider [phone] Umesh Jewell MD Unavailable [phone] Reason for Visit * Reason Comments Medication Refill Encounter Details Date Type Department Care Team (Late st Contact Info) Description 01/28/[address] [phone] Daniela Blanco MD [address] [place] [phone] Hyperlipidemia, unspecified hyperlipidemia type; Essential hypertension Social History Tobacco Use Types Packs/Day Years Used Date Smoking Tobacco: Never Alcohol Use Standard Drinks/Week Comments No 0 (1 standard drink = 0.6 oz pur e alcohol) Sex and Gender Information Value Date Recorded Sex Assigned at Not on file Legal Sex Male 5:59 PM EDT Gender Identity Not on file Sexual Orientation Not on file documented as of this encounter Miscellaneous Notes * Telephone Encounter - Delonte Lees MA - 01/28/2017 4:32 PM EDT Tried to call and leave a message for patient, however, the VM box is full and I could not leave a message - MSG * Telephone Encounter - Maryam Ashraf LPN - 01/28/2017 9:03 AM EDT Pt was only given 30 day supply of medication, pt needs to have blood work done, please encourage pt to do so- documented in this encounter Plan of Treatment Not on file documented as of this encounter Visit Diagnoses Diagnosis Hyperlipidemia, unspecified hyperlipidemia type Essential hypertension Unspecified essential hypertension documented in this encounter Care Teams Assistant Professor Of Dietetics Relationship Specialty Start Date End Date Daniela Blanco MD PCP - General Internal Medicine 05/13/15 09/25/18 Pcp, No 12/30/14 08/21/18 Umesh Jewell MD [address] [address] Ophthalmology 08/22/18 documented as of this encounter
--- OUTSIDE RECORDS SUMMARY | 2025-02-05 18:43 | XMS_ITS | Clinical Summary ---
Author Organization [facility] Address [address] [place] [address] Care Team Providers Care Phototypesetter Operator Name Role Phone Umesh Jewell MD Unavailable [phone] Allergies Active Allergy Reactions Criticality Noted Date Comments Cyclobenzaprine Other (See Comments) 12/17/2015 Hears voices Medications fexofenadine (MANJIT) 180 MG tablet Fexofenadine HCl - 180 MG Oral Tablet TAKE 1 TABLET DAILY. ; Start Date: 11/01/2014; End Date: 11/02/19 15 Active metFORMIN (GLUCOPHAGE) 1000 MG tabletIndications: Type 2 diabetes mellitus without complication TAKE ONE TABLET BY MOUTH TWICE DAILY 180 tablet 3 05/17/19 17 Active albuterol (PROAIR HFA) 108 (90 Base) MCG/ACT inhalerIndications :Uncomplicated asthma, unspecified asthma severity INHALE TWO PUFFS BY MOUTH 4 TIMES DAILY NEEDED FOR WHEEZING OR FOR SHORTNESS OF BREATH 1 Inhaler 3 08/28/19 17 Active fluticasone-salmet wilfredo (ADVAIR DISKUS) 500-50 mcg/inh diskus inhalerIndications :Uncomplicated asthma, unspecified asthma severity Inhale 1 puff 2 (two) times a day. 60 each 3 08/28/19 17 Active clotrimazole (LOTRIMIN) 1 % ointmentIndication s:Balanitis Apply topically 2 (two) times a day. 1 Tube 1 08/28/19 17 Active ADVAIR DISKUS 500-50 MCG/DOSE diskus inhalerIndications :Uncomplicated asthma INHALE ONE DOSE BY MOUTH TWICE DAILY 60 each 3 03/02/20 Active lisinopril-hydroch lorothiazide (PRINZIDE,ZESTORET IC) 20-12.5 MG per tabletIndications: Essential hypertension Take 1 tablet by mouth daily. 90 tablet 03/03/20 17 Active simvastatin (ZOCOR) 20 MG tabletIndications: Hyperlipidemia, unspecified hyperlipidemia type Take 1 tablet (20 mg total) by mouth daily. 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 11/01/2014 Low back pain 11/01/2014 Morbid obesity 11/01/2014 Family History Medical History Relation Name Comments Diabetes Father Prostate cancer Father Arrhythmia Mother Hyperlipidemia Mother Hyperlipidemia Sister Hypertension Sister Relation Name Status Comments Father Mother Sister Social History Tobacco Use Types Packs/Day Years Used Date Smoking Tobacco: Never Alcohol Use Standard Drinks/Week Comments No 0 (1 standard drink = 0.6 oz pur e alcohol) Sex and Gender Information Value Date Recorded Sex Assigned at Not on file Legal Sex Male 5:59 PM EDT Gender Identity Not on file Sexual Orientation Not on file Last Filed Vital Signs Vital Sign Reading Time Taken Comments Blood Pressure 128/90 08/27/2016 9:33 AM EDT Pulse 112 08/27/2016 9:33 AM EDT Temperature 36.7 C (98.1 F) 12/17/2015 10:28 AM EDT Respiratory Rate 18 12/17/2015 10:28 AM EDT Oxygen Saturation 98% 08/27/2016 9:33 AM EDT Inhaled Oxygen Concentration - - Weight 144 kg (317 lb) 08/27/2016 9:33 AM EDT Height 186.7 cm (6' 1.5 ) 05/20/2015 9:11 AM EST Body Mass Index 41.26 05/20/2015 9:11 AM EST Plan of Treatment Health Maintenance Due Date Last Done Comments Hepatitis C Virus Screening 1977 Foot Exam 1987 HIV Screening 1990 Microalbumin/Creatinine Rati o Urine 1995 DTaP/Tdap/Td Vaccines (1 - Tdap) 1996 Hepatitis B Vaccines (1 of 3 - 19+ 3-dose series) 1996 Pneumococcal Vaccine: Pediat harika (0-5 Years) and At-Risk Patients (6 to 49 Years) (1 of 2 - PCV) 1996 Hemoglobin A1C 11/18/2015 05/20/2015, 10/16, 11/01/2014, Additional history exists Creatinine with GFR 05/21/2016 05/21/2015, 09/21/2013, 09/20/2013, Additional history exists Lipid Panel 05/21/2016 05/21/2015 Ophthalmology Exam 08/23/2017 08/23/2016 (P reviously Completed) Colonoscopy 2022 Influenza Vaccine 11/16/2024 COVID-19 Vaccine (1 - 2023-2 5 season) 2024 Procedures Procedure Name Priority Date/Time Associated Diagnosis Comments LIPID PANEL W/ DIRECT LDL Routine 05/21/2015 8:39 AM EST Essential hypertension Hyperlipidemia LDL goal < 100 COMPREHENSIVE METABOLIC PANEL Routine 05/21/2015 8:39 AM EST Type 2 diabetes mellitus without complication (HCC) Essential hypertension POCT GLYCOSYLATED HEMOGLOBIN (HGB A1C) Routine 05/20/2015 9:21 AM EST Type 2 diabetes mellitus without complication (HCC) from Last 3 Months or Most Recently Relevant to Health Maintenance Results * (ABNORMAL) Lipid Panel w/ Direct LDL (05/21/2015 8:39 AM EST) Cholesterol, Total 175 <200 mg/dL [facility] Triglycerides 377(H) <150 mg/dL [facility] Cholesterol, HDL 35(L) >39 mg/dL [facility] LDL, Direct 106 <130 mg/dL [facility] Comment: NCEP Guidelines: < 100 mg/dL Optimal 100 - 129 mg/dL Near Optimal/Above Optimal 130 - 159 mg/dL Borderline High 160 - 189 mg/dL High >/= 190 mg/dL Very High Test Performed at: [facility], CLIA#:[id number] Blood specimen (specimen) Blood specimen / Unknown 05/21/2015 8:39 AM EST 05/21/2015 2:25 PM EST us Daniela Blanco MD LAB BLOOD ORDERABLES Final Re sult [facility] * (ABNORMAL) Comprehensive Metabolic Panel (05/21/2015 8:39 AM EST) Glucose 131(H) 65 - 99 mg/dL [facility] Comment:Fasting: <100 mg/dL, Non-Fasting: <200 mg/dL (ADA 2004) Blood Urea Nitrogen (BUN) 19 8 - 21 mg/dL [facility] Creatinine 0.9 0.5 - 1.3 mg/dL [facility] eGFR 94 >59 [facility] Comment:MDRD in mL/min/1.73 sq meters. For Americans, multiply by 1.21. BUN/Creatinine Ratio 21 10.0 - 25.0 Ratio [facility] Sodium 141 136 - 145 mmol/L [facility] Potassium 4.5 3.4 - 5.3 mmol/L [facility] Chloride 101 98 - 107 mmol/L [facility] CO2 28 22 - 33 mmol/L [facility] Calcium 10.0 8.7 - 10.5 mg/dL [facility] Alkaline Phosphatase 86 45 - 128 U/L [facility] Aspartate Aminotrans (AST) 41 10 - 55 U/L [facility] Alanine Aminotrans (ALT) 38 10 - 55 U/L [facility] Bilirubin, Total 0.4 0.2 - 1.0 mg/dL [facility] Protein, Total 7.8 6.3 - 8.3 g/dL [facility] Albumin 4.8 3.5 - 5.0 g/dL [facility] Globulin 3.0 1.5 - 3.9 g/dL [facility] Albumin/Globulin Ratio 1.6 1.0 - 3.0 Ratio [facility] Comment:Test Performed at: [facility], CLIA#:[id number] Blood specimen (specimen) Blood specimen / Unknown 05/21/2015 8:39 AM EST 05/21/2015 2:25 PM EST Daniela Blanco MD LAB BLOOD ORDERABLES Final Re sult [facility] * (ABNORMAL) POCT Glycosylated Hemoglobin (Hb A1C) (05/20/2015 9:21 AM EST) Hemoglobin A1C 6.9 % Blood specimen (specimen) 05/20/2015 9:21 AM EST Daniela Blanco MD POINT OF CARE TEST ORDERABLES Final Result from Last 3 Months or Most Recently Relevant to Health Maintenance Insurance [facility] Care Teams Phototypesetter Operator Relationship Specialty Start Date End Date Umesh Jewell MD [address] [address] Ophthalmology 08/22/18
--- OUTSIDE RECORDS SUMMARY | 2025-02-05 18:43 | XMS_ITS | Clinical Summary ---
Author Organization [facility] Address [address] [place] [address] Care Team Providers Care Counter Caser Name Role Phone Unavailable Primary Care Provider Unavailabl e Encounters Date Type Department Care Team Description 11/06/2024 Population Health Risk Score [facility] Care [facility] (C3) Department [address] [facility] [address] [place] [address] Provider, Population Health Generic from Last 3 Months Social History Tobacco Use Types Packs/Day Years Used Date Smoking Tobacco: Never Assessed Sex and Gender Information Value Date Recorded Sex Assigned at Not on file Legal Sex Male 9:31 PM EDT Gender Identity Not on file Sexual Orientation Not on file Plan of Treatment Health Maintenance Due Date Last Done Comments CT Colonography 1977 Colonoscopy 1977 Colorectal Cancer Screening 1977 Depression Screening 1977 FIT DNA/Cologuard 1977 FIT 1977 FOBT 1977 Lipid Panel 1977 SDOH Screening 1977 Sigmoidoscopy 1977 Disability Screening 1977 Alcohol/Substance Use Screening 1989 Tobacco Screening 1989 Family Planning (PISQ) 1992 Hepatitis C Screening 1995 Influenza Vaccine (#1) 2024 , 01/26/2023, 01/18/2022, Additional history exists Zoster Vaccines (1 of 2) 2027 DTaP/Tdap/Td Vaccines (4 - Td or Tdap) 07/10/2031 07/09/2021, 04/04/2012, 02/12/2008, Additional history exists RSV Patients and Patients Aged 60 years or older (1 - 1-dose 75+ series) 2052 HIV Screening Completed 07/03/2021, 07/03/2021 Hepatitis B Vaccines Completed 02/17/2022, 01/18/2022, 07/09/2021 Pneumococcal Vaccine: Pediatrics (0 to 5 Years) and At-Risk Patients (6 to 49) Years Completed 01/26/2023, 04/04/2012 COVID-19 Vaccine Completed 09/06/2024, 06/2021, 02/10/2021, Additional history exists HIB Vaccines Aged Out No longer eligi ble based on patient's age to complete this topic HPV Vaccines Aged Out No longer eligi ble based on patient's age to complete this topic Hepatitis A Vaccines Aged Out No long er eligible based on patient's age to complete this topic IPV Vaccines Aged Out No longer eligi ble based on patient's age to complete this topic Meningococcal B Vaccine Aged Out No l onger eligible based on patient's age to complete this topic Meningococcal Vaccine Aged Out No radha hermila eligible based on patient's age to complete this topic RSV under 20 months Aged Out No longe r eligible based on patient's age to complete this topic Rotavirus Vaccines Aged Out No longer eligible based on patient's age to complete this topic
--- OUTSIDE RECORDS SUMMARY | 2025-02-05 18:43 | XMS_ITS | Clinical Summary ---
Author Organization [facility] Address [address] [place] [address], [place] [address] Care Team Providers Care Database Marketing Specialist Name Role Phone Ori Dolan MD Primary Care Provider [phone] Allergies Active Allergy Reactions Criticality Noted Date Comments Cyclobenzaprine Other (see comments) High 03/04/2006 CAUSE ASTHM EXACERFATION Hears voices CAUSE ASTHM EXACERFATION Hears voices Levothyroxine Other (see comments) Medium 04/04/2012 Depression Lorazepam Other (see comments) High 02/07/2013 Other reaction(s): OTHER anxiety anxiety Oxycodone Itching High 03/29/2019 Medications albuterol HFA (PROVENTIL HFA;VENTOLIN HFA) 108 (90 Base) MCG/ACT inhaler Inhale 2 puffs 1 Active atorvastatin (LIPITOR) 80 MG tablet Take 1 tablet by mouth 1 (one) time each day 1 Active cloNIDine (CATAPRES) 0.1 MG tablet Take 1 tablet by mouth 3 Active fexofenadine (MANJIT) 180 MG tablet Take 1 tablet by mouth 1 (one) time each day 5 Active fluticasone (FLONASE) 50 MCG/ACT nasal spray Administer 2 sprays into affected nostril(s) daily 3 Active Fluticasone-Wero meterol (Advair Diskus) 500-50 MCG/ACT aerosol powder INHALE 1 PUFF INTO THE LUNGS TWICE A DAY 7 Active gabapentin (NEURONTIN) 600 MG tablet Take 2 tablets by mouth in the morning and 2 tablets in the evening. 3 Active glipiZIDE (GLUCOTROL XL) 2.5 MG 24 hr tablet Take 2.5 mg by mouth in the morning. 1 Active lisinopril-hydr oCHLOROthiazide (PRINZIDE,ZESTO RETIC) 20-12.5 MG per tablet Take 1 tablet by mouth 1 (one) time each day 7 Active metFORMIN (GLUCOPHAGE) 1000 MG tablet Take 1,000 mg by mouth in the morning and 1,000 mg in the evening. 3 Active Active Problems Problem Noted Date Diagnosed Date Bronchitis 11/08/2022 Back pain 10/27/2022 Chronic thoracic back pain 03/25/2022 Obstructive sleep apnea 12/04/2018 Overview (10/27/2022): [facility] Home Sleep Apnea Test: Date 11/29/2018; Wt 297#; BMI 38; ROXANN 13, AI 6; HI 7; Unclassified apneas 39; Obstructive apneas 0; Central apneas 0; Mixed apneas 0; hypopneas 41; average oxygen saturation 95% (lowest 83% without saturations <88% for 5% or more of study) - Obstructive Sleep Apnea - mild; mostly hypopneas; without sleep related hypoventilation by 2019 home sleep apnea test. [facility] Home Sleep Apnea Test: Date 11/29/2018; Wt 297#; BMI 38; ROXANN 13, AI 6; HI 7; Unclassified apneas 39; Obstructive apneas 0; Central apneas 0; Mixed apneas 0; hypopneas 41; average oxygen saturation 95% (lowest 83% without saturations <88% for 5% or more of study) - Obstructive Sleep Apnea - mild; mostly hypopneas; without sleep related hypoventilation by [address] of head abnormal 11/21/2018 Overview (10/27/2022): Calcified pineal gland on CT. 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 He comes back in with progressive symptoms, states he lives with constant transverse low back pain 3-8/10, depending on the day and activity level. His left leg subjectively feels weak, occasionally his ankle will buckle and twist, his symptoms worsen with walking, he feels like his left leg does not respond . When he has pain in the left leg a couple days per week, it radiates down the left lateral leg, mostly the thigh, symptoms go to the big toe and bottom of the foot. He denies any recent falls, bowel bladder incontinence, saddle anesthesia, right leg symptoms. He rates his left leg pain 6/10. He states his walking tolerance has gone from 20 minutes down to 10 minutes, then he has severe back pain in the left leg feels weak. 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 He feels this is significantly affecting his daily life. He has been on gabapentin 600 mg twice daily with no significant improvement. He has tried multiple conservative treatments including injections, physical therapy, certified caregiver. Patient had lumbar spine MRI 01/11/2022 at [place] that shows L5-S1 degenerative disc disease with significant loss of disc height, severe left >moderate right foraminal stenosis. He has milder degenerative findings at other levels in the lumbar spine, including epidural lipomatosis. Dr. Bradford reviewed the MRI images on the computer with the patient in detail. He has an upcoming EMG/NCS study in a couple days. Mr. Avendano has progressive worsening of his low back pain, left leg weakness/pain with time, what sounds like L5 distribution fitting with his L5-S1 DDD and left neuroforaminal narrowing. Dr. Bradford saw patient on today's visit and offered him L5-S1 OLIF, 65% success rate, surgery with its risks and benefits discussed in detail, including but not limited to need for general anesthesia, risk of heart attack or stroke, hematoma, nerve root injury, spinal fluid leak, infection. All questions answered on today's visit. Patient would like to think about the surgery, states he cannot have surgery till after the holidays when his family is available to help him. I asked him to make sure he gets his hemoglobin A1c 8 or less, his last A1c was in the eights, will follow-up with his PCP prior to surgery. He will call with any additional questions or concerns. Last Assessment & Plan: Patient was last seen 05/15/2019 for low back pain and occasional tingling in the left leg. He comes back in with progressive symptoms, states he lives with constant transverse low back pain 3-8/10, depending on the day and activity level. His left leg subjectively feels weak, occasionally his ankle will buckle and twist, his symptoms worsen with walking, he feels like his left leg does not respond . When he has pain in the left leg a couple days per week, it radiates down the left lateral leg, mostly the thigh, symptoms go to the big toe and bottom of the foot. He denies any recent falls, bowel bladder incontinence, saddle anesthesia, right leg symptoms. He rates his left leg pain 6/10. He states his walking tolerance has gone from 20 minutes down to 10 minutes, then he has severe back pain in the left leg feels weak. 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 He feels this is significantly affecting his daily life. He has been on gabapentin 600 mg twice daily with no significant improvement. He has tried multiple conservative treatments including injections, physical therapy, certified caregiver. Patient had lumbar spine MRI 01/11/2022 at [place] that shows L5-S1 degenerative disc disease with significant loss of disc height, severe left >moderate right foraminal stenosis. He has milder degenerative findings at other levels in the lumbar spine, including epidural lipomatosis. Dr. Bradford reviewed the MRI images on the computer with the patient in detail. He has an upcoming EMG/NCS study in a couple days. Mr. Avendano has progressive worsening of his low back pain, left leg weakness/pain with time, what sounds like L5 distribution fitting with his L5-S1 DDD and left neuroforaminal narrowing. Dr. Bradford saw patient on today's visit and offered him L5-S1 OLIF, 65% success rate, surgery with its risks and benefits discussed in detail, including but not limited to need for general anesthesia, risk of heart attack or stroke, hematoma, nerve root injury, spinal fluid leak, infection. All questions answered on today's visit. Patient would like to think about the surgery, states he cannot have surgery till after the holidays when his family is available to help him. I asked him to make sure he gets his hemoglobin A1c 8 or less, his last A1c was in the eights, will follow-up with his PCP prior to surgery. He will call with any additional questions or concerns. Essential hypertension 08/20/2009 Asthma 08/29/2005 Social History Tobacco Use Types Packs/Day Years Used Date Smoking Tobacco: Never Assessed Sex and Gender Information Value Date Recorded Sex Assigned at Not on file Legal Sex Male 11:36 AM EDT Gender Identity Not on file Sexual Orientation Not on file Last Filed Vital Signs Vital Sign Reading Time Taken Comments Blood Pressure 144/90 11/08/2022 9:07 AM EDT Pulse 107 11/08/2022 9:07 AM EDT Temperature 35.7 C (96.2 F) 11/08/2022 9:07 AM EDT Respiratory Rate 16 11/08/2022 9:07 AM EDT Oxygen Saturation 97% 11/08/2022 9:07 AM EDT Inhaled Oxygen Concentration - - Weight 135 kg (298 lb) 11/08/2022 9:07 AM EDT Height 182.9 cm (6') 11/08/2022 9:07 AM EDT Body Mass Index 40.42 11/08/2022 9:07 AM EDT Plan of Treatment Health Maintenance Due Date Last Done Comments Hepatitis B Vaccine (1 of 3 - 19+ 3-dose series) 1996 07/09/2021 Pneumococcal Vaccine: Peds ( 0 to 5 Years) and At-Risk Patients (6 to 49 Years) (2 of 2 - PCV) 04/04/2013 04/04/2012 Diabetes: Ophthalmology Exam 09/28/2022 02/15/2014 Diabetes: Pedal Pulse Checked 09/28/2022 Diabetes: Sensory Foot Exam 09/28/2022 Diabetes: Visual Foot Exam 09/28/2022 Diabetes: Hemoglobin A1C 09/05/2024 06/08/2024, 09/17 Influenza Vaccine (#1) 2024 01/18/2022, 2020 Insurance Medicaid [place] Care Teams Database Marketing Specialist Relationship Specialty Start Date End Date Ori Dolan MD [address] [place] [address] PCP - General Physician [place] 09/28/22
--- OUTSIDE RECORDS SUMMARY | 2025-02-05 18:43 | XMS_ITS | Encounter Summary ---
Author Organization [facility] Address [address] [place] [id number] Care Team Providers Care Signal Tester Name Role Phone Pcp, No Unavailable Unavailable Daniela Blanco MD Primary Care Provider [phone] Umseh Jewell MD Unavailable [phone] Reason for Visit * Reason Comments Medication Refill Encounter Details Date Type Department Care Team (Late st Contact Info) Description 02/12/[address] [address] Daniela Blanco MD [address] [place] [id number] Type 2 diabetes mellitus without complication (HCC) Social History Tobacco Use Types Packs/Day Years [...] encounter Miscellaneous Notes * Telephone Encounter - Maryam Ashraf LPN - 02/12/2016 9:53 AM EDT Pt needs to be scheduled for a f/u documented in this encounter Plan of Treatment Not on file documented as of this encounter Visit Diagnoses Diagnosis Type 2 diabetes mellitus without complication documented in this encounter Care Teams Signal Tester Relationship Specialty Start Date End Date Daniela Blanco MD PCP - General Internal Medicine 05/13/15 09/25/18 Pcp, No 12/30/14 08/21/18 Umesh Jewell MD [address] [place] [address] Ophthalmology 08/22/18 documented as of this encounter
--- OUTSIDE RECORDS SUMMARY | 2025-02-05 18:43 | XMS_ITS | Clinical Summary ---
Author Organization [facility] Address [address] [place] [address] Phone Care Team Providers Care Sheet Writer Name Role Phone Ori Dolan Primary Care Provider [phone] Allergies Active Allergy Reactions Criticality Noted Date Comments Cyclobenzaprine Hcl 03/04/2006 Flexeril CAUSE ASTHM EXACERFATION Levonorgestrel-Ethinyl Estrad 11/09/2018 Seasonal Allergies Lorazepam 02/07/2013 Ativan Other Reaction(s): OTHER anxiety Oxycodone Itching 03/29/2019 Thyrox Medium 04/04/2012 Levothyroxine Sodium Other Reaction(s): OTHER Depression Medications fluticasone propion-salmete roL (Advair Diskus) 500-50 mcg/dose diskus inhaler INHALE 1 PUFF BY MOUTH TWICE A DAY 1 Active albuterol HFA (PROAIR HFA ; PROVENTIL HFA ; VENTOLIN HFA) 90 mcg/actuation inhaler Inhale 2 Puffs into the lungs every 6 hours as needed for Cough or Wheezing. 1 Active atorvastatin (LIPITOR) 80 mg tablet TAKE 1 TABLET BY MOUTH EVERY DAY 1 Active fluticasone propionate (FLONASE) 50 mcg/actuation nasal spray 2 Sprays by Nasal route daily. 1 Active gabapentin (NEURONTIN) 600 mg tablet Take 2 Tablets by mouth 2 times daily. Active lisinopril-hydr oCHLOROthiazide (PRINZIDE,ZESTO RETIC) 20-12.5 mg per tablet TAKE 1 TABLET BY MOUTH EVERY DAY 1 Active metFORMIN (GLUCOPHAGE) 1,000 mg tablet TAKE 1 TABLET BY MOUTH TWICE A DAY WITH MEALS 1 Active neomycin-polymy laurent-dexamethame thasone (POLYDEX) 3.5 mg/g-10,000 unit/g-0.1 % ointment APPLY A SMALL AMOUNT ON EYELID FOUR TIMES A DAY TO AFFECTED AREAS. TO START AFTER SURGERY. 2 Active traZODone (DESYREL) 100 mg tablet TAKE 1 TABLET BY MOUTH EVERYDAY AT BEDTIME 2 Active ammonium lactate (AmLactin) 12 % lotion Apply topically if needed for dry skin. 400 g 2 5 05/16/19 26 Active Active Problems Problem Noted Date Diagnosed Date Depressive disorder 02/15/2022 Obstructive sleep apnea 12/04/2018 Overview (03/14/2024): [facility] Home Sleep Apnea Test: Date 11/29/2018; Wt 297#; BMI 38; ROXANN 13, AI 6; HI 7; Unclassified apneas 39; Obstructive apneas 0; Central apneas 0; Mixed apneas 0; hypopneas 41; average oxygen saturation 95% (lowest 83% without saturations <88% for 5% or more of study) - Obstructive Sleep Apnea - mild; mostly hypopneas; without sleep related hypoventilation by 2019 home sleep apnea test. Abnormal CT scan, head 11/21/2018 Overview (03/14/2024): Calcified pineal gland on CT. 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 Patient had lumbar spine MRI 01/11/2022 at [place] that shows L5-S1 degenerative disc disease with significant loss of disc height, severe left >moderate right foraminal stenosis. He has milder degenerative findings at other levels in the lumbar spine, including epidural lipomatosis. Dr. Bradford reviewed the MRI images on the computer with the patient in detail. He has an upcoming EMG/NCS study in a couple days. Mr. Whitmore has progressive worsening of his low back [...] call with any additional questions or concerns. HTN (hypertension) 08/20/2009 Asthma 08/29/2005 Encounters Date Type Department Care Team Description 01/14/2025 9:45 AM EDT Office Visit Orthopedic Surgery - [address] [address] Magdiel Slater, JAYLON Controlled type 2 diabetes with neuropathy (CMS/HCC V24, CMS/HCC V28) (Primary Dx); Lumbosacral radiculopathy; Hammertoes of both feet; Ingrown toenail of left foot; Metatarsalgia of right foot from Last 3 Months Immunizations Immunization Administration Dates Next Due Hepatitis B (Pcllsnc-O-Xooyi , Recombivax HB-Adult) 19yo and older 07/09/2021 Influenza trivalent, 0.5mL, preservative free (Fluarix; FluLaval; Fluzone) ages 6mo and older (Afluria) 3 years and older 02/10/2021,01/17/2013,04/04/2012,01/16 Influenza trivalent, with pr eservative (Fluzone; Afluria) 6mo and older 01/01/2009,02/12/2008 Pneumococcal polysaccharide 23 valent (Pneumovax 23) 2yo and older 04/04/2012 Td Tetanus diptheria (Tdvax) 7yo and older 01/19/2007 Tdap Tetanus diptheria acell ular pertussis (Boostrix; Adacel) 7yo and older 07/09/2021,04/04/2012,02/12/2008 Surgical History Surgery Date Site/Laterality Comments OTHER SURGICAL HISTORY Left PROCEDURE: [place] UNLISTED PROCEDURE EYELIDS; COMMENT: blepharoplasty HAND SURGERY 04/18/2022 - 04/17/2023 Left repair of boxer fracture Medical History Medical History Date Comments Ptosis of eyelid, left 11/09/2018 DX:Ptosis of eyelid, left Lumbar radiculopathy, chronic 11/09/2018 DX :Lumbar radiculopathy, chronic Lumbar nerve root compression 11/09/2018 DX :Lumbar nerve root compression Disorder of pineal gland 11/21/2018 DX:Diso rder of pineal gland Abnormal MRI of head 11/21/2018 DX:Abnormal MRI of head Abnormal CT scan, head 11/21/2018 DX:Abnorm al CT scan, head; COMMENT: Calcified pineal gland on CT. MRI pending Type 2 diabetes mellitus wit hout complications (CMS/HCC V24, CMS/HCC V28) DX:Type 2 diabetes mellitus without complications (HCC) HTN (hypertension) DX:HTN (hyper tension) Anxiety and depression DX:Anxiet y and depression Family History Medical History Relation Name Comments Diabetes Father Hyperlipidemia Father Hypertension Father pancreatic canc er, cabg Coronary artery disease Mother Hypertension Mother Hypertension Sister Blindness Neg Hx Cataracts Neg Hx Glaucoma Neg Hx Macular degeneration Neg Hx Strabismus Neg Hx Relation Name Status Comments Father Alive htn Mother Alive htn Sister Alive htn Social History Tobacco Use Types Packs/Day Years Used Date Smoking Tobacco: Never Smokeless Tobacco: Never Tobacco Cessation:Counseling Given: Not Answered Alcohol Use Standard Drinks/Week Comments Yes 0 (1 standard drink = 0.6 oz pur e alcohol) Sex and Gender Information Value Date Recorded Sex Assigned at Male 06/19/2024 8:45 AM EST Legal Sex Male 6:22 AM EST Gender Identity Male 06/19/2024 8:45 AM EST Sexual Orientation Straight 06/19/2024 8: 45 AM EST Obstetrics History Last Filed Vital Signs Vital Sign Reading Time Taken Comments Blood Pressure 122/90 10/28/2021 10:49 AM EDT Si tting L Arm Pulse 107 10/28/2021 10:49 AM EDT Temperature - - Respiratory Rate - - Oxygen Saturation - - Inhaled Oxygen Concentration - - Weight 118 kg (260 lb) 07/30/2024 3:12 PM EDT Height 182.9 cm (6') 07/30/2024 3:12 PM EDT Body Mass Index 35.26 07/30/2024 3:12 PM EDT Plan of Treatment Upcoming Encounters Date Type Department Care Team (Late st Contact Info) Description 03/20/2025 10:00 AM EST Office Visit Orthopedic Surgery - [address] [phone] Magdiel Slater, DPM [address] [address] Health Maintenance Due Date Last Done Comments Colorectal Cancer Screening: Colonoscopy 1977 Diabetes: Annual Foot Exam 1987 Diabetes: Annual Retina Eye Exam 1987 Social Influencers of Health Screening 03/21/2022 Depression Screening 04/18/2024 Influenza Vaccine (#1) 2024 , 01/26/2023, 01/18/2022, Additional history exists Diabetes: Blood Sugar Control Test (HGBA1C) 02/23/2025 08/23/2024, 01/14/2022, 05/20/2015 Diabetes: Annual Urine Albumin-Creatinine Ratio (uACR) 08/23/2025 08/23/2024, 11/09/2018 Diabetes: Annual GFR (Glomerular Filtration Rate) 08/23/2025 08/23/2024, 07/03/2021, 11/12/2010 Hypertension/CHF/CAD Annual BMP Blood Test 08/23/2025 08/23/2024, 07/03/2021, 11/12/2010 Cholesterol Screening (Lipid Panel) 08/23/2029 08/23/2024, 08/23/2024, 10/06/2022, Additional history exists DTaP,Tdap,and Td Vaccines (5 - Td or Tdap) 07/10/2031 07/09/2021, 04/04/2012, 02/12/2008, Additional history exists RSV Immunization Adult Patients (1 - 1-dose 75+ series) 2052 HIV Screening Completed 07/03/2021 Hepatitis C Screening Completed 07/03/2021, 022 Hepatitis B Vaccines Completed 02/17/2022, 01/18/2022, 07/09/2021 Pneumococcal Vaccine: Pediatrics (0 to 5 Years) and At-Risk Patients (6 to 49 Years) Completed 01/26/2023, 04/04/2012 COVID-19 Vaccine Completed 09/06/2024, , 01/18/2022, Additional history exists HIB Vaccines Aged Out [...] on patient's age to complete this topic MMR Vaccines Aged Out No longer eligi ble based on patient's age to complete this topic Meningococcal ACWY Vaccine Aged Out N o longer eligible based on patient's age to complete this topic Meningococcal B Vaccine Aged Out No l onger eligible based on patient's age to complete this topic RSV Immunization Patients Under 20 months Aged Out No longer eligible based on patient's age to complete this topic Varicella Vaccines Aged Out No longer eligible based on patient's age to complete this topic Procedures Procedure Name Priority Date/Time Associated Diagnosis Comments HEMOGLOBIN A1C Routine 01/14/2022 HEPATITIS C SCREENING Routine 07/03/2021 HIV SCREENING Routine 07/03/2021 ANNUAL BMP BLOOD TEST Routine 07/03/2021 LIPID PANEL Routine 07/03/2021 URINE ALBUMIN CREATININE RATIO Routine 11/09/2018 from Last 3 Months or Most Recently Relevant to Health Maintenance Results * Hemoglobin A1c (01/14/2022) Hemoglobin A1C 0.0 % Comment:no interpretation, a bstracted Blood Venous blood specimen / Unknown Historical Provider LAB BLOOD ORDERABLES Janelle hernandez Result * Annual BMP Blood Test (07/03/2021) Annual BMP Blood Test abstracted Result [facility] Provider HEALTH MAINTENANCE Final Result * HIV Screening (07/03/2021) [facility] HIV Screening abstracted Result [facility] Provider HEALTH MAINTENANCE Final Result * Hepatitis C Screening (07/03/2021) [facility] Hepatitis C Screening abstracted Result [facility] Provider HEALTH MAINTENANCE Final Result * Lipid panel (07/03/2021) [facility] LDL/HDL Ratio 0 Comment:no interpretation, a bstracted Triglycerides 0 mg/dL Comment:no interpretation, a bstracted Cholesterol 0 mg/dL Comment:no interpretation, a bstracted HDL 0 mg/dL Comment:no interpretation, a bstracted LDL Cholesterol 0 mg/dL Comment:no interpretation, a bstracted Blood Venous blood specimen / Unknown Result [facility] Provider LAB BLOOD ORDERABLES Janelle l Result * Urine Albumin Creatinine Ratio (11/09/2018) [facility] Urine Albumin Creatinine Ratio abstracted Result [facility] Provider HEALTH MAINTENANCE Final Result from Last 3 Months or Most Recently Relevant to Health Maintenance Insurance MEDICAID - [place] Care Teams Sheet Writer Relationship Specialty Start Date End Date Ori Dolan PA [address] [place] [address] PCP - General Internal Medicine 10/21/21
--- OUTSIDE RECORDS SUMMARY | 2025-02-05 18:43 | XMS_ITS | Encounter Summary ---
Author Organization [facility] Address [address] [place] [address] Care Team Providers Care Wire Frame Lampshade Maker Name Role Phone Pcp, No Primary Care Provider Unavailabl e Pcp, No Unavailable Unavailable Daniela Blanco MD Primary Care Provider [phone] Umesh Jewell MD Unavailable [phone] Encounter Details Date Type Department Care Team (Late st Contact Info) Description 12/10/2014 Scanned Document [address] [place] [phone] Provider, Generic Social History Tobacco Use [...] on filedocumented in this encounter Care Teams Wire Frame Lampshade Maker Relationship Specialty Start Date End Date Pcp, No PCP - General 12/30/14 05/12/15 Daniela Blanco MD PCP - General Internal Medicine 05/13/15 09/25/18 Pcp, No 12/30/14 08/21/18 Umesh Jewell MD [address] [id number] Ophthalmology 08/22/18 documented as of this encounter
--- OUTSIDE RECORDS SUMMARY | 2025-02-05 18:43 | XMS_ITS | Encounter Summary ---
Author Organization [facility] Address [address] [place] [address] Care Team Providers Care Tabular Typist Name Role Phone Pcp, No Unavailable Unavailable Daniela Blanco MD Primary Care Provider [phone] Umesh Jewell MD Unavailable [phone] Encounter Details Date Type Department Care Team (Late st Contact Info) Description 05/20/2015 Scanned Document [address] [phone] Provider, Generic Social History Tobacco Use Types [...] on filedocumented in this encounter Care Teams Tabular Typist Relationship Specialty Start Date End Date Daniela Blanco MD PCP - General Internal Medicine 05/13/15 09/25/18 Pcp, No 12/30/14 08/21/18 Umesh Jewell MD [address] [address] Ophthalmology 08/22/18 documented as of this encounter
[2025-02-14 11:11] VITALS: BMI 37.1
[2025-03-01] VITALS (8 sets, daily range): BP systolic 109–131; BP diastolic 67–76; PULSE 89–97; RESP 13–21; TEMP 36.2–36.8; O2SAT 94–98
[2025-03-01 08:50] LABS: Glucose, Whole Blood 157 mg/dL (60-115)
[2025-03-01] MEDS: Lactated Ringers 1,000 ML 100 ML IVCONT (08:50)
--- NOTE | 2025-03-01 09:00 | HO.ANESPROP2 ---
Documented by User: Melanie Peralta NP 02/26/25 08:36 HPI - Anesthesia Eval Consult details Narrative: 49yo M for Left Shoulder Arthroscopy, distal clavicle excision, acromioplasty, possible rotator cuff repair Medically optimized per PCP Anesthesia Pre-Procedure Meds Is the patient on any of the following meds?: SGLT2 Inhib PMFSH Active Problems Active Problems: All Active Problems Impingement syndrome of left shoulder (Acute) Left shoulder pain (Acute) S/P lumbar fusion (Acute) Back pain of lumbar region with sciatica (Acute) Past Medical History Medical History Spinal stenosis Left leg weakness Environmental allergies Back pain 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 Hypothyroid Disorder of pineal gland Depression DDD (degenerative disc disease), lumbar Anxiety Asthma Seasonal allergies Elevated cholesterol HTN (hypertension) Diabetes MARY on CPAP Family History Family history of problems with anesthesia: No Surgical History Surgical History Hx of hand surgery (~2023) Hx of spinal surgery (11/22/22) History of eyelid surgery History of Problems with Anesthesia: No Social History Social History Household Members: None Housing: House Are you a primary healthcare project manager to a significant other at home: No Do you presently have visiting nurse or other home services: No Patient Tobacco Use Status: Never used Tobacco Second Hand Smoke Exposure: No Use of substances other than those prescribed or required for medical reasons: Yes Substance Use Type: Marijuana Substance Use Frequency: Occasionally Have you been hit, kicked, punched, or otherwise hurt by someone within the past year? If so, by whom?: No Are you DNR?: No Advance Directives: No Advance Directives Information Provided: Yes Advance Directives on File: No service: No Current occupational status: unemployed Current occupation: rt handed Meds Allergies Allergy/AdvReac Type Severity Reaction Status Date / Time cyclobenzaprine (From Allergy Severe Hallucinati Verified 02/21/25 10:23 Flexeril) ons oxycodone Allergy Severe facial Verified 02/21/25 10:23 itching lactose Allergy Mild Gastrointestinal Verified 02/21/25 10:23 Upset Home Medications ?Medication ?Instructions ?Recorded ?Confirmed ?Last Taken ?Type atorvastatin 80 mg tablet 80 mg PO DAILY 11/05/22 02/21/25 11/21/22 History fluticasone 500 mcg-salmeterol 50 1 ea inhalation BID 11/05/22 03/01/25 03/01/25 History mcg/dose blistr powdr for inhalation (Advair Diskus) fluticasone propionate 50 2 spray intranasal DAILY 11/05/22 02/21/25 11/21/22 History mcg/actuation nasal spray,suspension lisinopril 20 1 tab PO DAILY 11/05/22 02/21/25 11/21/22 History mg-hydrochlorothiazide 12.5 mg tablet albuterol sulfate 90 mcg/actuation 2 puff inhalation Q4-6H PRN 11/08/22 02/21/25 Unknown History aerosol inhaler Shortness Of Breath Or Wheezing fexofenadine 180 mg tablet 180 mg PO BID 11/08/22 02/21/25 11/22/22 04:30 History empagliflozin 10 mg tablet 10 mg PO QAM 10/03/24 02/21/25 Unknown History (Jardiance) fenofibrate nanocrystallized 145 145 mg PO DAILY 10/03/24 02/21/25 Unknown History mg tablet insulin glargine 100 unit/mL (3 10 unit subcut BEDTIME 10/03/24 02/21/25 Unknown History mL) subcutaneous pen (Lantus Solostar U-100 Insulin) metformin 500 mg tablet 500 mg PO BID 10/03/24 02/21/25 Unknown History cholecalciferol (vitamin D3) 125 125 mcg PO DAILY 02/14/25 02/21/25 Unknown History mcg (5,000 unit) tablet (Vitamin D3) Exam Height,Weight and Vital Signs: Height 6 ft 1 in Weight 127.459 kg Pertinent Lab Results Pertinent Lab Results: Outside Labs 01/2025 CMP WNL A1C 7.3 CBC WNL Narrative Narrative: EKG 01/2025 NSR nonspecific changes , possible anterior ischemia Treadmill Stress 02/2025 No ischemic changes - suboptimal functional capacity Abnormal heart rate recovery Assessment and Plan Assessment Anesthesia Assessment: Chart Reviewed Final Anesthetic Review Family History of Problems with Anesthesia: No History of Problems with Anesthesia: No Documented by User: Brandi Segal DO 03/01/25 09:48 HPI - Anesthesia Eval Anesthesia Pre-Procedure Meds Is the patient on any of the following meds?: SGLT2 Inhib PMFSH Past Medical History Medical History Spinal stenosis Left leg weakness Environmental allergies Back pain 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 Hypothyroid Disorder of pineal gland Depression DDD (degenerative disc disease), lumbar Anxiety Asthma Seasonal allergies Elevated cholesterol HTN (hypertension) Diabetes MARY on CPAP Family History Family history of problems with anesthesia: No Surgical History Surgical History Hx of hand surgery (~2023) Hx of spinal surgery (11/22/22) History of eyelid surgery History of Problems with Anesthesia: No Social History Social History Household Members: None Housing: House Are you a primary healthcare project manager to a significant other at home: No Do you presently have visiting nurse or other home services: No Patient Tobacco Use Status: Never used Tobacco Second Hand Smoke Exposure: No Use of substances other than those prescribed or required for medical reasons: Yes Substance Use Type: Marijuana Substance Use Frequency: Occasionally Have you been hit, kicked, punched, or otherwise hurt by someone within the past year? If so, by whom?: No Are you DNR?: No Advance Directives: No Advance Directives Information Provided: Yes Advance Directives on File: No service: No Current occupational status: unemployed Current occupation: rt handed Meds Allergies Allergy/AdvReac Type Severity Reaction Status Date / Time cyclobenzaprine (From Allergy Severe Hallucinati Verified 02/21/25 10:23 Flexeril) ons oxycodone Allergy Severe facial Verified 02/21/25 10:23 itching lactose Allergy Mild Gastrointestinal Verified 02/21/25 10:23 Upset Home Medications ?Medication ?Instructions ?Recorded ?Confirmed ?Last Taken ?Type atorvastatin 80 mg tablet 80 mg PO DAILY 11/05/22 02/21/25 11/21/22 History fluticasone 500 mcg-salmeterol 50 1 ea inhalation BID 11/05/22 03/01/25 03/01/25 History mcg/dose blistr powdr for inhalation (Advair Diskus) fluticasone propionate 50 2 spray intranasal DAILY 11/05/22 02/21/25 11/21/22 History mcg/actuation nasal spray,suspension lisinopril 20 1 tab PO DAILY 11/05/22 02/21/25 11/21/22 History mg-hydrochlorothiazide 12.5 mg tablet albuterol sulfate 90 mcg/actuation 2 puff inhalation Q4-6H PRN 11/08/22 02/21/25 Unknown History aerosol inhaler Shortness Of Breath Or Wheezing fexofenadine 180 mg tablet 180 mg PO BID 11/08/22 02/21/25 11/22/22 04:30 History empagliflozin 10 mg tablet 10 mg PO QAM 10/03/24 02/21/25 Unknown History (Jardiance) fenofibrate nanocrystallized 145 145 mg PO DAILY 10/03/24 02/21/25 Unknown History mg tablet insulin glargine 100 unit/mL (3 10 unit subcut BEDTIME 10/03/24 02/21/25 Unknown History mL) subcutaneous pen (Lantus Solostar U-100 Insulin) metformin 500 mg tablet 500 mg PO BID 10/03/24 02/21/25 Unknown History cholecalciferol (vitamin D3) 125 125 mcg PO DAILY 02/14/25 02/21/25 Unknown History mcg (5,000 unit) tablet (Vitamin D3) Exam Exam Date and Time: 03/01/25 0900 Height,Weight and Vital Signs: Height 6 ft 1 in Weight 127.459 kg Vital Signs Temperature 98.3 F 03/01/25 08:49 Pulse Rate 89 03/01/25 08:49 Respiratory Rate 16 03/01/25 08:49 Blood Pressure 109/73 03/01/25 08:49 Pulse Oximetry 96 03/01/25 08:49 Oxygen Delivery Method Room Air 03/01/25 08:49 Temperature 98.3 F 03/01/25 08:49 Pulse Rate 89 03/01/25 08:49 Respiratory Rate 16 03/01/25 08:49 Blood Pressure 109/73 03/01/25 08:49 Pulse Oximetry 96 03/01/25 08:49 Oxygen Delivery Method Room Air 03/01/25 08:49 Airway Mallampati Class: III (small oral aperture) TM Dist: >3cm Neck ROM: Full Loose/Missing/Broken Teeth: No (patient denies any loose or broken teeth) Heart: S1S2 Lungs: CTAB Assessment and Plan Assessment Anesthesia Assessment: Anesthesia Plan Discussed and Chart Reviewed Final Anesthetic Review Family History of Problems with Anesthesia: No History of Problems with Anesthesia: No NPO: Yes ASA Class: III Final Preanesthetic Review: No Changes in Pt Med Stat, Meds/Allgs Chart Reviewed, Consent Obtained/Reviewed and Anes Risks/Benef Reviewed Patient Risk: Intermediate Procedure Risk: Intermediate Anesthetic Plan Anesthetic Plan: GA, Regional Block (left brachial plexus block) and Agree w/ Assess. and Plan Disposition: Standard PACU
--- NOTE | 2025-03-01 11:30 | P.BOP_ITS ---
Brief Operative Note Date of Service: 03/01/25 Pre-op diagnosis: Left shoulder impingement syndrome, left shoulder acromioclavicular joint arthritis, possible left shoulder rotator cuff tear Post-op diagnosis: other (Left shoulder impingement syndrome, left shoulder acromioclavicular joint arthritis, left shoulder adhesive capsulitis) Procedure: Left shoulder arthroscopic distal clavicle excision, left shoulder arthroscopic acromioplasty, left shoulder arthroscopic anterior capsular release, left shoulder manipulation under anesthesia Implants: none Surgeon: Adonis Leal MD Anesthesia: GETA and regional Was an Bailer Operators Supervisor used for this Procedure?: No Estimated blood loss (mL): 15 Pathology: none sent Condition: stable Disposition: PACU
--- NOTE | 2025-03-01 11:31 | W.PM.OPN ---
Operative Note Operative Note Date of Service: 03/01/25 Narrative: After the patient was identified as Aidan Avendano and his left shoulder was initialed by myself the patient was brought to the holding area where a left shoulder interscalene regional block was performed by the anesthesiologist in routine fashion. The patient was then brought to the operating room where general anesthesia was induced by the anesthesiologist in routine fashion. The patient was given 2 g of IV Ancef preoperatively for infection prophylaxis. Examination under anesthesia of the patient's left shoulder showed decreased range of motion when compared to the right shoulder. The patient's left shoulder had forward flexion to 110 degrees compared to 170 degrees, external rotation to 20 degrees compared to 70 degrees, and internal rotation to 50 degrees compared to 60 degrees. The patient was gently positioned in the beach chair position with all bony prominences well padded. The patient's left shoulder region and upper extremity were prepped and draped in sterile fashion. A formal time-out was completed. A #11 scalpel blade was used to make a posterior portal 2 cm inferior and 1 cm medial to the posterolateral corner of the acromion. Blunt trocar technique was used to enter the glenohumeral joint in routine fashion. An anterior portal was made just lateral to the coracoid process after proper positioning was confirmed using a spinal needle. Diagnostic arthroscopy showed minimal degenerative changes of the glenoid and humeral head articular surfaces. There was no evidence of rotator cuff tearing. There was no evidence of injury to the biceps tendon or its insertion onto the glenoid. There was degenerative fraying of the anterior labrum which was debrided with the arthroscopic shaver. There was also inflammation of the anterior joint capsule consistent with adhesive capsulitis. The ArthroCare Wand was then used to perform an anterior capsular release between the inferior border of the biceps tendon and the superior border of the subscapularis tendon. The arthroscope was then placed from the posterior portal into the subacromial space. A lateral portal was made 2 fingerbreadths lateral to the anterior lateral corner of the acromion. The ArthroCare Wand was used to ablate soft tissues along the undersurface of the acromion as well as to excise the coracoacromial ligament. There was a sharp spur along the undersurface of the acromion which was removed using the hooded bur. The arthroscope was then placed into the lateral portal and the acromioplasty was completed with the bur in the posterior portal using the posterior aspect of the acromion as a cutting block. The ArthroCare Wand was then brought in through the anterior portal and was used to ablate soft tissues along the acromioclavicular joint and distal clavicle. The posterior and superior ligamentous structures were left intact. A distal clavicle excision of 8 mm was performed using the hooded bur. Any remaining bursal tissue was removed using the arthroscopic shaver. The subacromial space was irrigated and then drained. All arthroscopic instruments were removed. A gentle manipulation under anesthesia was then performed. Full passive range of motion was easily attained. The 3 portals were closed with 3-0 nylon interrupted suture. The subacromial space was injected with Marcaine. Dry sterile dressing was placed over all incisions. The patient's left upper extremity was placed into a sling. The patient was awoken and extubated in the operating room. The patient was transferred to the recovery room in stable condition.
== END 2025-03-01 13:05 | disposition home or self-care (01) ==
PROVIDERS: PCP Physician Assistant; Visit Provider Orthopaedic Surgery
PROC: (CPT 29805; principal; 2025-03-01 10:30)
DX: M75.42 Impingement syndrome of left shoulder (principal); M75.02 Adhesive capsulitis of left shoulder; M19.012 Primary osteoarthritis, left shoulder; E11.65 Type 2 diabetes mellitus with hyperglycemia; G47.33 Obstructive sleep apnea (adult) (pediatric); F33.1 Major depressive disorder, recurrent, moderate; F41.9 Anxiety disorder, unspecified; J45.909 Unspecified asthma, uncomplicated; I10 Essential (primary) hypertension; E03.9 Hypothyroidism, unspecified; E66.01 Morbid (severe) obesity due to excess calories; Z68.38 Body mass index [BMI] 38.0-38.9, adult; Z79.4 Long term (current) use of insulin; Z79.84 Long term (current) use of oral hypoglycemic drugs; Z79.899 Other long term (current) drug therapy; Z99.89 Dependence on other enabling machines and devices
CPT/HCPCS: 29824; 29825; 29826; 82947; J0131; J0165; J0330; J0690; J0696; J1100; J1630; J2003; J2250; J2371; J2405; J2704; J2795; J3010

== ENCOUNTER → 2025-03-01 08:06 | Outpatient (BNV) | payer MEDICAID, SELFPAY | PROVIDERS: PCP Physician Assistant; Visit Provider Orthopaedic Surgery | DX: M19.012 Primary osteoarthritis, left shoulder (principal); M75.42 Impingement syndrome of left shoulder | CPT/HCPCS: 29824; 29826 ==

== ENCOUNTER 2025-03-13 09:49 | Outpatient (AMB) | payer MEDICAID, SELFPAY ==
--- OUTSIDE RECORDS SUMMARY | 2024-02-02 09:00 | XMS_ITS | Encounter Summary ---
Author Organization [facility] Address [address] [place] [address] Care Team Providers Care Tech Writer Name Role Phone Ori Dolan Primary Care Provider Encounter Details Date Type Department Care Team (Late st Contact Info) Description 02/02/2024 10:00 AM EDT Hospital Encounter TH HISTORIC ENCOUNTERS [facility] CONVERSION ONLY Ori Dolan PA [address] [place] [phone] Social History Tobacco Use Types Packs/Day Years [...] AM EST Office Visit Orthopedic Surgery - [place] [address] [facility] [address] [place] [phone] Magdiel Slaetr, JAYLON 175 [facility] [address] [place] [address] documented as of this encounter Visit Diagnoses Not on filedocumented in this encounter Care Teams Tech Writer Relationship Specialty Start Date End Date Ori Dolan PA [address] [place] [address] PCP - General Internal Medicine 10/21/21 documented as of this encounter
--- NOTE | 2025-03-13 09:52 | MHC.OFFVIS ---
Intake Visit Reasons: PO-Lt Shld , Possible RTC Repair 03/01/25 Intake Note: Aidan is a 49 year old male who presents today post operatively after undergoing a left shoulder , performed by Dr. Leal on 03/01/25. At today's visit patient reports he is doing well, states weakness and pain however this is to be expected. Allergies cyclobenzaprine (From Flexeril) Allergy (Severe, Verified 03/13/25 09:55) Hallucinations oxycodone Allergy (Severe, Verified 03/13/25 09:55) facial itching lactose Allergy (Mild, Verified 03/13/25 09:55) Gastrointestinal Upset HPI HPI PO-Lt Shld , Possible RTC Repair 03/01/25 DR: Details: 49-year-old gentleman presents to the office today for a follow-up left shoulder arthroscopy with Dr. Leal on 03/01/2025. The patient states he discontinue the Dilaudid as it was not helpful. He has been icing the shoulder with mild relief. He is able to bring his arm behind his back but he has difficulty with reaching up overhead. 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 Hypothyroid Disorder of pineal gland Depression DDD (degenerative disc disease), lumbar Anxiety Asthma Seasonal allergies Elevated cholesterol HTN (hypertension) Diabetes MARY on CPAP Surgical History Hx of hand surgery (~2023) Hx of spinal surgery (11/22/22) History of eyelid surgery Social History Household Members: None Housing: House Are you a primary rn coronary care unit to a significant other at home: No Do you presently have visiting nurse or other home services: No Patient Tobacco Use Status: Never used Tobacco Second Hand Smoke Exposure: No Substance Use Type: Marijuana service: No Current occupational status: unemployed Current occupation: rt handed Review of Systems Const All systems reviewed & are unremarkable except as noted in HPI and below Physical Exam Extrem Other: Left shoulder incisions are clean dry and intact. He can bring his left hand to shoulder height but not to the top of or back of his head. He can internally rotate to back pocket. Neurovascularly intact. Results Reviewed Results Reviewed: Date of Service: 03/01/25 Pre-op diagnosis: Left shoulder impingement syndrome, left shoulder acromioclavicular joint arthritis, possible left shoulder rotator cuff tear Post-op diagnosis: other (Left shoulder impingement syndrome, left shoulder acromioclavicular joint arthritis, left shoulder adhesive capsulitis) Procedure: Left shoulder arthroscopic distal clavicle excision, left shoulder arthroscopic acromioplasty, left shoulder arthroscopic anterior capsular release, left shoulder manipulation under anesthesia Implants: none Surgeon: Adonis Leal MD Assessment & Plan Assessment & Plan (1) Impingement syndrome of left shoulder: Code(s): M75.42 - Impingement syndrome of left shoulder Category: Medical (2) History of arthroscopy of left shoulder: Code(s): Z98.890 - Other specified postprocedural states Category: Surgical Plan Sutures removed today Steri-Strips applied. I offered a course of physical therapy to work on motion, strength and conditioning exercises. An order was placed in the patient was advised to make an appointment. I we have him a prescription for Tylenol and naproxen to take for 2 weeks to help with discomfort. The patient will refrain from repetitive for the next 4-6 weeks, at which point they will return to see Dr. Leal, sooner if needed. Orders: Orders PT Evaluation and Treatment Today M75.42 - Impingement syndrome of left shoulder, Z98.890 - Other specified postprocedural states Medications: New acetaminophen 650 mg (2 x 325 mg) PO Q4-6H PRN 240 tabs 0RF fever or pain 30 days naproxen 500 mg PO BID 60 tabs 3RF 30 days S93.409A - Sprain of unspecified ligament of unspecified ankle, initial encounter Coding Level of Care Code Global (18010) Diagnoses Impingement syndrome of left shoulder M75.42 History of arthroscopy of left shoulder Z98.890
--- OUTSIDE RECORDS SUMMARY | 2025-03-13 11:21 | XMS_ITS | Clinical Summary ---
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 Patient had lumbar spine MRI 01/11/2022 at [place] that shows L5-S1 degenerative disc disease with [...] EDT Office Visit Orthopedic Surgery - [address] [address] Magdiel Slater, JAYLON Controlled type 2 diabetes with neuropathy (CMS/HCC V24, CMS/HCC V28) (Primary Dx); Lumbosacral radiculopathy; Hammertoes of both feet; Ingrown toenail of left foot; Metatarsalgia of right foot from Last 3 Months Immunizations Immunization Administration Dates Next Due Hepatitis B ([id number]-Ihocw , Recombivax HB-Adult) 19yo and older 07/09/2021 [...] Site/Laterality Comments OTHER SURGICAL HISTORY Left PROCEDURE: [place] UNLISTED PROCEDURE EYELIDS; COMMENT: blepharoplasty HAND SURGERY [...] AM EST Office Visit Orthopedic Surgery - [place] [address] [phone] Magdiel Slater, DPM [address] [address] Health Maintenance Due Date Last Done Comments Colorectal Cancer Screening: Colonoscopy 1977 Diabetes: Annual Foot Exam 1987 Diabetes: Annual Retina Eye Exam 1987 Social Influencers of Health Screening 03/21/2022 Depression Screening 04/18/2024 COVID-19 Vaccine ( season) 2024 09/06/2024, 01/28/2023, 01/18/2022, Additional history exists Influenza Vaccine (#1) 2024 , 01/26/2023, 01/18/2022, [...] (6 to 49 Years) Completed 01/26/2023, 04/04/2012 HIB Vaccines Aged Out No longer eligi [...] Result * Annual BMP Blood Test (07/03/2021) Pathologist [facility] Annual BMP Blood Test abstracted Result [facility] Provider HEALTH MAINTENANCE Final Result * HIV Screening (07/03/2021) [facility] HIV Screening abstracted Result [facility] Provider HEALTH MAINTENANCE Final Result * Hepatitis C Screening (07/03/2021) [facility] Hepatitis C Screening abstracted Result [facility] Provider HEALTH MAINTENANCE Final Result * Lipid panel (07/03/2021) [facility] LDL/HDL Ratio 0 Comment:no interpretation, a bstracted Triglycerides 0 mg/dL Comment:no interpretation, a bstracted Cholesterol 0 mg/dL Comment:no interpretation, a bstracted HDL 0 mg/dL Comment:no interpretation, a bstracted LDL Cholesterol 0 mg/dL Comment:no interpretation, a bstracted Blood Venous blood specimen / Unknown Result [facility] Provider LAB BLOOD ORDERABLES Janelle l Result * Urine Albumin Creatinine Ratio (11/09/2018) [facility] Urine Albumin Creatinine Ratio abstracted Result [facility] Provider HEALTH MAINTENANCE Final Result from Last 3 Months or Most Recently Relevant to Health Maintenance Insurance MEDICAID - [place] Care Teams Motion Picture Set Up Worker Relationship Specialty Start Date End Date Ori Dolan PA [address] [place] [address] PCP - General Internal Medicine 10/21/21
--- OUTSIDE RECORDS SUMMARY | 2025-03-13 11:21 | XMS_ITS | Clinical Summary ---
Author Organization [facility] Address [address] [place] [place] [phone] Care Team Providers Care Cab Driver Name Role Phone Unavailable Primary Care Provider [...] vaccine 11/16/2024 Covid-19 vaccine series ( - 2024- season) 2024 RSV Immunization (1 - 1-dose [...] EDT) Cholesterol 176 115 - 199 mg/dL [facility] HDL 36(L) 40 - 65 mg/dL [facility] Triglycerides 173(H) 30 - 150 mg/dL [facility] Chol/HDL Ratio 5 <=5 [facility] 11/12/2010 8:59 AM EDT Narrative [facility] - 11/13/2010 10:11 AM EDT PT TEL: [phone] us Avery Camacho MD LAB BLOOD ORDERABLES Janelle hernandez Result [facility] [address] [place] [address] * (ABNORMAL) Comprehensive metabolic panel (11/12/2010 8:59 AM EDT) Glucose 97 70 - 100 mg/dL [facility] BUN 14 7 - 20 mg/dL [facility] Creatinine 1.0 0.5 - 1.2 mg/dL [facility] BUN/Creatinine Ratio 14.0 10.0 - 20.0 [facility] Anion Gap 13 7 - 16 [facility] CO2 28.2 22.0 - 30.0 mmol/L [facility] Chloride 100 96 - 106 mmol/L [facility] Sodium 141 135 - 145 mmol/L [facility] Potassium 4.1 3.5 - 5.0 mmol/L [facility] Calcium 9.8 8.8 - 10.2 mg/dL [facility] Total Protein 8.0 6.0 - 8.3 g/dL [facility] Albumin 4.4 3.5 - 5.0 g/dL [facility] Globulin 3.6(H) 2.3 - 3.5 g/dL [facility] A/G Ratio 1.2 1.0 - 2.2 [facility] Aspartate Aminotransferase (AST) 23 0 - 34 U/L [facility] Alanine Aminotransferase (ALT) 31 0 - 34 U/L [facility] Alkaline Phosphatase 91 30 - 130 U/L [facility] Total Bilirubin 0.29 <1.20 mg/dL [facility] 11/12/2010 8:59 AM EDT Narrative [facility] - 11/13/2010 10:11 AM EDT PT TEL: [phone] us Avery Camacho MD LAB BLOOD ORDERABLES Janelle hernandez Result [facility] [address] [place] [phone] from Last 3 Months or Most Recently Relevant to Health Maintenance
--- OUTSIDE RECORDS SUMMARY | 2025-03-13 11:21 | XMS_ITS | Encounter Summary ---
Author Organization [facility] Address [address] [place] [address] Care Team Providers Care Home Office Representative Name Role Phone Pcp, No Primary Care Provider Unavailabl e Pcp, No Unavailable Unavailable Daniela Blanco MD Primary Care Provider [phone] Umesh Jewell MD Unavailable [phone] Encounter Details Date Type Department Care Team ([facility] st Contact Info) Description 12/10/2014 Scanned Document [address] [place] [phone] Provider, Generic Social History Tobacco Use [...] on filedocumented in this encounter Care Teams Home Office Representative Relationship Specialty Start Date End Date Pcp, No PCP - General 12/30/14 05/12/15 Daniela Blanco MD PCP - General Internal Medicine 05/13/15 09/25/18 Pcp, No 12/30/14 08/21/18 Umesh Jewell MD [address] [phone] Ophthalmology 08/22/18 documented as of this encounter
--- OUTSIDE RECORDS SUMMARY | 2025-03-13 11:21 | XMS_ITS | Clinical Summary ---
Author Organization [facility] Address [address] [place] [address], [place] [address] Care Team Providers Care Hostess Cashier Name Role Phone Ori Dolan MD Primary Care Provider [phone] Allergies Active Allergy Reactions Criticality Noted Date [...] 03/25/2022 Obstructive sleep apnea 12/04/2018 Overview (10/27/2022): [facility] Home Sleep Apnea [...] hypoventilation by [address] ap[address] test[address] [facility] Home Sleep Apnea [...] multiple conservative treatments including injections, physical therapy, care professional. Patient had lumbar spine MRI 01/11/2022 at [facility] that shows L5-S1 degenerative disc disease with [...] multiple conservative treatments including injections, physical therapy, care professional. Patient had lumbar spine MRI 01/11/2022 at [facility] that shows L5-S1 degenerative disc disease with [...] 01/18/2022, 2020 Insurance Medicaid [place] Care Teams Hostess Cashier Relationship Specialty Start Date End Date Ori Dolan MD [address] [place] [address] PCP - General Physician [employer] 09/28/22
--- OUTSIDE RECORDS SUMMARY | 2025-03-13 11:21 | XMS_ITS | Clinical Summary ---
Author Organization [facility] Address [address] [place] [address] Care Team Providers Care Automation Qa Analyst Name Role Phone Umesh Jewell MD Unavailable [phone] Allergies Active Allergy Reactions Criticality Noted [...] Very High Test Performed at: [facility], CLIA#:[id number] Blood specimen (specimen) Blood specimen / [...] 3.0 Ratio CLP Comment:Test Performed at: [facility], CLIA#:[id number] Blood specimen (specimen) Blood specimen / [...] Most Recently Relevant to Health Maintenance Insurance [facility] Care Teams Automation Qa Analyst Relationship Specialty Start Date End Date Umesh Jewell MD [address] [address] Ophthalmology 08/22/18
--- OUTSIDE RECORDS SUMMARY | 2025-03-13 11:21 | XMS_ITS | Clinical Summary ---
Author Organization [facility] Address [address] [facility] [address] [place] [address] Care Team Providers Care Menhaden Vessel Pilot Name Role Phone Unavailable Primary Care Provider [...] Planning (PISQ) 1992 Hepatitis C Screening 1995 COVID-19 Vaccine ( season) 2024 09/06/2024, 01/18/2022, 02/10/2021, Additional history exists Influenza Vaccine (#1) 2024 [...] (6 to 49) Years Completed 01/26/2023, 04/04/2012 HIB Vaccines Aged Out [...]
--- OUTSIDE RECORDS SUMMARY | 2025-03-13 11:21 | XMS_ITS | Encounter Summary ---
Author Organization [facility] Address [address] [place], [place] [id number] Care Team Providers Care Thermodynamicist Name Role Phone Pcp, No Unavailable Unavailable Daniela Blanco MD Primary Care Provider [phone] Umesh Jewell MD Unavailable [phone] Encounter Details Date Type Department Care Team (Late st Contact Info) Description 08/23/2016 Scanned Document [address] [phone] Provider, Generic Social History Tobacco [...] on filedocumented in this encounter Care Teams Thermodynamicist Relationship Specialty Start Date End Date Daniela Blanco MD PCP - General Internal Medicine 05/13/15 09/25/18 Pcp, No 12/30/14 08/21/18 Umesh Jewell MD [address] [phone] Ophthalmology 08/22/18 documented as of this encounter
--- OUTSIDE RECORDS SUMMARY | 2025-03-13 11:21 | XMS_ITS | Encounter Summary ---
Author Organization [facility] Address [address] [place] [address] Care Team Providers Care Electrification Adviser Name Role Phone Pcp, No Unavailable Unavailable Daniela Blanco MD Primary Care Provider [phone] Umesh Jewell MD Unavailable [phone] Encounter Details Date Type Department Care Team (Late st Contact Info) Description 05/20/2015 Scanned Document [address] [phone] Provider, Generic Social History Tobacco [...] on filedocumented in this encounter Care Teams Electrification Adviser Relationship Specialty Start Date End Date Daniela Blanco MD PCP - General Internal Medicine 05/13/15 09/25/18 Pcp, No 12/30/14 08/21/18 Umesh Jewell MD [address] [address] Ophthalmology 08/22/18 documented as of this encounter
== END 2025-03-13 10:20 | disposition home or self-care (01) ==
LOC: HO.HOS 09:50
PROVIDERS: PCP Physician Assistant; Visit Provider Physician Assistant
DX: M75.42 Impingement syndrome of left shoulder (principal); Z98.890 Other specified postprocedural states
CPT/HCPCS: 99024

== ENCOUNTER → 2025-03-13 09:49 | Outpatient (BNVA) | payer MEDICAID, SELFPAY | PROVIDERS: PCP Physician Assistant; Visit Provider Physician Assistant | DX: M75.42 Impingement syndrome of left shoulder (principal); Z98.890 Other specified postprocedural states; Z48.02 Encounter for removal of sutures | CPT/HCPCS: 99212 ==